=== PATIENT | female | born 1935 | race Caucasian/White ===

== ENCOUNTER → 2019-08-01 12:39 | Outpatient (BNVA) | payer MEDICARE, SELFPAY | PROVIDERS: Family Provider Nurse Practitioner; PCP Nurse Practitioner; Visit Provider Anesthesiology | DX: M54.5 Low back pain (principal); M47.22 Other spondylosis with radiculopathy, cervical region; M17.0 Bilateral primary osteoarthritis of knee; G62.9 Polyneuropathy, unspecified; Z79.891 Long term (current) use of opiate analgesic | CPT/HCPCS: 99214 ==

== ENCOUNTER → 2019-08-14 12:21 | Outpatient (BNVA) | payer MEDICARE, SELFPAY | PROVIDERS: Family Provider Nurse Practitioner; PCP Nurse Practitioner; Visit Provider Nurse Practitioner | DX: E11.65 Type 2 diabetes mellitus with hyperglycemia (principal); Z79.4 Long term (current) use of insulin; I10 Essential (primary) hypertension; F41.9 Anxiety disorder, unspecified; E03.8 Other specified hypothyroidism; Z91.89 Other specified personal risk factors, not elsewhere classified | CPT/HCPCS: 80053; 83036; 84443 ==

== ENCOUNTER → 2020-01-13 12:59 | Outpatient (BNVA) | payer MEDICARE, SELFPAY | PROVIDERS: Family Provider Nurse Practitioner; PCP Nurse Practitioner; Visit Provider Anesthesiology | DX: M54.9 Dorsalgia, unspecified (principal); M17.0 Bilateral primary osteoarthritis of knee; G62.9 Polyneuropathy, unspecified; M47.22 Other spondylosis with radiculopathy, cervical region; Z79.891 Long term (current) use of opiate analgesic | CPT/HCPCS: 99213; 99214 ==

== ENCOUNTER → 2020-01-14 14:31 | Outpatient (BNVA) | payer MEDICARE, SELFPAY | PROVIDERS: Family Provider Nurse Practitioner; PCP Nurse Practitioner; Visit Provider Nurse Practitioner Family | DX: M54.5 Low back pain (principal); I10 Essential (primary) hypertension; E11.65 Type 2 diabetes mellitus with hyperglycemia; E03.8 Other specified hypothyroidism | CPT/HCPCS: 72100; 73502; 80053; 80061; 83036; 84443 ==

== ENCOUNTER 2020-01-26 13:13 | Outpatient (CLI) | payer MEDICARE, SELFPAY ==
--- NOTE | 2020-01-26 13:29 | MR_ITS ---
WS: [id number] MRI LUMBAR SPINE NONCONTRAST HISTORY: LOW BACK PAIN COMPARISON: CT lumbar spine 06/13/2019. TECHNIQUE: Sagittal and axial multisequence imaging is submitted. Increase in thoracic kyphosis. Disc bulging and mild degenerative disc and osteophyte disease through out the cervical spine. There are 7 cervical and 12 thoracic vertebral bodies. L5 vertebral body is mildly hyperplastic and m ay be sacralized. This numbering pattern will be very important if surgery is contemplated in this pa tient. L2 anterolisthesis by 6.4 mm. L3 anterolisthesis by 3.9 mm. L4 anterolisthesis by 8.2 mm. Normal alignment at the L5-S1 disc level. Severe disc desiccation at all levels. Conus terminates normally at L1. L1-L2: Marked annular disc bulging and facet arthritis. More focal disc protrusion in the LEFT subart icular recess and LEFT foramen. Complete effacement of fat in the LEFT subarticular recess and forame n. Near complete effacement of fat on the RIGHT. L2-L3: Diffuse annular disc bulging and osteophytic ridging. Near complete effacement of central CSF. Marked ligamentum flavum disease and facet arthritis. Moderate to severe bilateral foraminal stenosi s. L3-L4: Diffuse annular disc bulging with marked facet and ligamentum flavum arthritis. Focal extruded disc on the LEFT extends superiorly adjacent to the LEFT lateral thecal sac. Severe central and bila teral subarticular recess and foraminal stenosis. L4-L5: Diffuse annular disc bulging and facet disease. Broad-based disc protrusion centrally and to t he LEFT. Mild bilateral foraminal stenosis and central stenosis. L5-S1: No stenosis. Paravertebral soft tissues are negative. Cortical cyst associated with the RIGHT kidney. Additional s maller cysts from the superior pole LEFT kidney. MR/MR lumbar spine wo con* [id number] IMPRESSION: 1. Severe multilevel spondylitic changes throughout the lumbar spine. 2. There are 5 lumbar type vertebral bodies but the fifth lumbar vertebral bod ies partially sacralized and small caliber. If surgery is contemplated in this patient correlation with imaging will be very important. 3. Severe central, bilateral subarticular recess and foraminal stenosis at L3- 4. There is an extruded disc extending superiorly on the LEFT at L3-4. 4. Moderate central and moderate to severe bilateral foraminal and subarticula r recess stenosis at L2-3. 5. Focal LEFT subarticular recess and foraminal disc protrusion at L1-2 with s ignificant LEFT foraminal and subarticular stenosis. 6. Bilateral foraminal and central stenosis at L4-5. 7. L2, L3 and L4 anterolisthesis.
== END 2020-01-26 13:14 | disposition home or self-care (01) ==
LOC: RADWPI 13:16
PROVIDERS: Family Provider Nurse Practitioner; PCP Nurse Practitioner; Visit Provider Nurse Practitioner Family
DX: M48.061 Spinal stenosis, lumbar region without neurogenic claudication (principal); M51.26 Other intervertebral disc displacement, lumbar region
CPT/HCPCS: 72148

== ENCOUNTER → 2020-04-08 15:36 | Outpatient (BNVA) | payer MEDICARE, SELFPAY | PROVIDERS: Family Provider Nurse Practitioner; PCP Nurse Practitioner; Visit Provider Nurse Practitioner | DX: Z23 Encounter for immunization (principal); F41.9 Anxiety disorder, unspecified; K46.9 Unspecified abdominal hernia without obstruction or gangrene; R06.02 Shortness of breath | CPT/HCPCS: 71046; 74018 ==

== ENCOUNTER → 2020-04-20 12:59 | Outpatient (BNVA) | payer MEDICARE, SELFPAY | PROVIDERS: Family Provider Nurse Practitioner; PCP Nurse Practitioner; Visit Provider Anesthesiology | DX: M48.061 Spinal stenosis, lumbar region without neurogenic claudication (principal); M51.26 Other intervertebral disc displacement, lumbar region; M47.22 Other spondylosis with radiculopathy, cervical region; G62.9 Polyneuropathy, unspecified; M54.9 Dorsalgia, unspecified; Z79.891 Long term (current) use of opiate analgesic | CPT/HCPCS: 99214 ==

== ENCOUNTER → 2020-07-13 10:48 | Outpatient (BNVA) | payer MEDICARE, SELFPAY | PROVIDERS: Family Provider Nurse Practitioner; PCP Nurse Practitioner; Visit Provider Nurse Practitioner Family | DX: R30.0 Dysuria (principal); E11.65 Type 2 diabetes mellitus with hyperglycemia; I10 Essential (primary) hypertension; N30.00 Acute cystitis without hematuria | CPT/HCPCS: 80053; 80061; 81000; 83036; 84443; 85025 ==

== ENCOUNTER → 2020-07-20 12:46 | Outpatient (BNVA) | payer MEDICARE, SELFPAY | PROVIDERS: Family Provider Nurse Practitioner; PCP Nurse Practitioner; Visit Provider Anesthesiology | DX: M47.22 Other spondylosis with radiculopathy, cervical region (principal); M51.26 Other intervertebral disc displacement, lumbar region; M54.9 Dorsalgia, unspecified; G62.9 Polyneuropathy, unspecified; Z79.891 Long term (current) use of opiate analgesic | CPT/HCPCS: 99214 ==

== ENCOUNTER → 2020-07-22 14:18 | Outpatient (BNVA) | payer MEDICARE, SELFPAY | PROVIDERS: Family Provider Nurse Practitioner; PCP Nurse Practitioner; Visit Provider Nurse Practitioner | DX: I10 Essential (primary) hypertension (principal); E11.65 Type 2 diabetes mellitus with hyperglycemia; F41.9 Anxiety disorder, unspecified; E03.8 Other specified hypothyroidism; K21.9 Gastro-esophageal reflux disease without esophagitis; N95.2 Postmenopausal atrophic vaginitis | CPT/HCPCS: 81000 ==

== ENCOUNTER → 2020-08-31 09:46 | Outpatient (BNVA) | payer MEDICARE, SELFPAY | PROVIDERS: Family Provider Nurse Practitioner; PCP Nurse Practitioner; Visit Provider Nurse Practitioner | DX: R30.0 Dysuria (principal) | CPT/HCPCS: 81003; 87077; 87086; 87184 ==

== ENCOUNTER → 2020-10-06 12:10 | Outpatient (BNVA) | payer MEDICARE, SELFPAY | PROVIDERS: Family Provider Nurse Practitioner; PCP Nurse Practitioner; Visit Provider Nurse Practitioner Family | DX: M79.671 Pain in right foot (principal); M79.89 Other specified soft tissue disorders; E11.65 Type 2 diabetes mellitus with hyperglycemia; I10 Essential (primary) hypertension | CPT/HCPCS: 73630; 80053; 84550; 85025; 85651 ==

== ENCOUNTER → 2020-10-07 13:00 | Outpatient (BNVA) | payer MEDICARE, SELFPAY | PROVIDERS: Family Provider Nurse Practitioner; PCP Nurse Practitioner; Visit Provider Anesthesiology | DX: G89.29 Other chronic pain (principal); M48.061 Spinal stenosis, lumbar region without neurogenic claudication; M51.26 Other intervertebral disc displacement, lumbar region; M54.9 Dorsalgia, unspecified; M47.22 Other spondylosis with radiculopathy, cervical region; M17.0 Bilateral primary osteoarthritis of knee; G62.9 Polyneuropathy, unspecified; Z79.891 Long term (current) use of opiate analgesic | CPT/HCPCS: 99214 ==

== ENCOUNTER → 2021-01-14 12:38 | Outpatient (BNVA) | payer MEDICARE, SELFPAY | PROVIDERS: Family Provider Nurse Practitioner; PCP Nurse Practitioner; Visit Provider Nurse Practitioner | DX: M48.061 Spinal stenosis, lumbar region without neurogenic claudication (principal); M47.22 Other spondylosis with radiculopathy, cervical region; G62.9 Polyneuropathy, unspecified; Z79.891 Long term (current) use of opiate analgesic | CPT/HCPCS: 99213 ==

== ENCOUNTER → 2021-01-26 11:26 | Outpatient (BNVA) | payer MEDICARE, SELFPAY | PROVIDERS: Family Provider Nurse Practitioner; PCP Nurse Practitioner; Visit Provider Nurse Practitioner | DX: I10 Essential (primary) hypertension (principal); E11.65 Type 2 diabetes mellitus with hyperglycemia; F41.9 Anxiety disorder, unspecified; E03.8 Other specified hypothyroidism; M10.9 Gout, unspecified; E79.0 Hyperuricemia without signs of inflammatory arthritis and tophaceous disease; K21.9 Gastro-esophageal reflux disease without esophagitis | CPT/HCPCS: 80053; 83036; 84443; 84550 ==

== ENCOUNTER → 2021-04-21 12:34 | Outpatient (BNVA) | payer MEDICARE, SELFPAY | PROVIDERS: Family Provider Nurse Practitioner; PCP Nurse Practitioner; Visit Provider Anesthesiology | DX: G89.29 Other chronic pain (principal); M48.061 Spinal stenosis, lumbar region without neurogenic claudication; M51.26 Other intervertebral disc displacement, lumbar region; M47.22 Other spondylosis with radiculopathy, cervical region; G62.9 Polyneuropathy, unspecified; I10 Essential (primary) hypertension; Z79.891 Long term (current) use of opiate analgesic; Z87.891 Personal history of nicotine dependence | CPT/HCPCS: 99214 ==

== ENCOUNTER → 2021-06-07 14:21 | Outpatient (BNVA) | payer MEDICARE, SELFPAY | PROVIDERS: Family Provider Nurse Practitioner; PCP Nurse Practitioner; Referring Provider Nurse Practitioner Family; Visit Provider Orthopaedic Surgery | DX: M25.561 Pain in right knee (principal); G89.29 Other chronic pain; M17.11 Unilateral primary osteoarthritis, right knee | CPT/HCPCS: 73560; 73565 ==

== ENCOUNTER → 2021-07-19 10:06 | Outpatient (BNVA) | payer MEDICARE, SELFPAY | PROVIDERS: Family Provider Nurse Practitioner; PCP Nurse Practitioner; Visit Provider Nurse Practitioner | DX: R50.9 Fever, unspecified (principal) | CPT/HCPCS: 80053; 81000; 85025; 87635 ==

== ENCOUNTER 2021-07-23 09:22 | Outpatient (CLI) | payer MEDICARE, SELFPAY ==
[2021-07-23 09:40] VITALS: BP 141/61; PULSE 60; RESP 16; TEMP 36.5; O2SAT 98; BMI 34.9
[2021-07-23 10:37] VITALS: BP 130/60; PULSE 67; RESP 16; TEMP 36.6; O2SAT 96
[2021-07-23 11:38] VITALS: BP 145/70; PULSE 61; RESP 16; TEMP 36.7; O2SAT 97
== END 2021-07-23 09:23 | disposition home or self-care (01) ==
LOC: OPS 09:28
PROVIDERS: PCP Nurse Practitioner; Visit Provider Nurse Practitioner
DX: U07.1 COVID-19 (principal)
CPT/HCPCS: 96365

== ENCOUNTER → 2021-07-27 14:34 | Outpatient (BNVA) | payer MEDICARE, SELFPAY | PROVIDERS: PCP Nurse Practitioner; Visit Provider Anesthesiology | DX: G89.29 Other chronic pain (principal); M54.50 Low back pain, unspecified; M54.2 Cervicalgia; G62.9 Polyneuropathy, unspecified; Z79.891 Long term (current) use of opiate analgesic; Z87.891 Personal history of nicotine dependence | CPT/HCPCS: 99214 ==

== ENCOUNTER → 2021-08-12 11:30 | Outpatient (BNVA) | payer MEDICARE, SELFPAY | PROVIDERS: PCP Nurse Practitioner; Visit Provider Nurse Practitioner | DX: F41.9 Anxiety disorder, unspecified (principal); M48.061 Spinal stenosis, lumbar region without neurogenic claudication; I10 Essential (primary) hypertension; E79.0 Hyperuricemia without signs of inflammatory arthritis and tophaceous disease; E11.65 Type 2 diabetes mellitus with hyperglycemia; K21.9 Gastro-esophageal reflux disease without esophagitis; E03.8 Other specified hypothyroidism | CPT/HCPCS: 80053; 80061; 81000; 82043; 83036; 84443 ==

== ENCOUNTER 2021-12-19 14:48 | Observation (INO) | payer MEDICARE, SELFPAY ==
[2021-12-19] VITALS (9 sets, daily range): BP systolic 104–167; BP diastolic 39–74; PULSE 58–70; RESP 12–20; TEMP 36.2–36.4; O2SAT 92–96; BMI 33.0
--- NOTE | 2021-12-19 15:00 | ECG_ITS ---
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 Measurements Intervals [place] Rate: 62 P: -18 IA: 149 QRS: -53 QRSD: 107 T: 40 QT: 378 QTc: 385 Interpretive Statements SINUS RHYTHM LEFT ANTERIOR FASCICULAR BLOCK [QRS AXIS <= -45, QR IN I, RS IN II] MINIMAL VOLTAGE CRITERIA FOR LVH, CONSIDER NORMAL VARIANT POSSIBLE ANTERIOR MYOCARDIAL INFARCTION , OF INDETERMINATE AGE Compared to ECG 06/13/2019 23:20:29 Left anterior fascicular block now present Myocardial infarct finding now present Left-axis deviation no longer present Electronically Signed On 12-19-2021 21:20:44 CDT by Stephania Antonio M.D. [id number] f
[2021-12-19 16:23] LABS: Basophils % 0.2 %; Eosinophils # 0.4 10^3/uL (0.0-0.8); Eosinophils % 2.4 %; Hematocrit 44.1 % (37.0-47.0); Hemoglobin 14.3 g/dL (11.5-15.3); Lymphocytes # 4.2 10^3/uL (0.8-4.8); Lymphocytes % 26.6 %; Mean Corpuscular HGB Conc 32.4 g/dL (30.0-36.0); Mean Corpuscular Hemoglobin 29.8 pg (28.0-34.0); Mean Corpuscular Volume 91.9 fl (81-99); Mean Platelet Volume 10.4 fL (7.4-10.4); Monocytes # 1.7 10^3/uL (0.2-0.9); Monocytes % 11.1 %; Neutrophils # 8.99 10^3/uL (1.8-7.7); Neutrophils % 57.2 %; Nucleated Red Blood Cells % 0 %; Platelet Count 348 10^3/cmm (130-400); Red Cell Distribution Width 14.7 % (12.1-15.1); White Blood Count 15.7 10^3/uL (4.0-10.0)
[2021-12-19 16:44] LABS: Troponin(5th) Baseline 22 ng/L (0-10)
[2021-12-19 16:51] LABS: Alanine Aminotransferase 10 U/L (0-33); Albumin Level 4.3 g/dL (3.5-5.2); Alkaline Phosphatase 88 IU/L (35-105); Anion Gap 17.3 (5-19); Aspartate Amino Transferase 10 U/L (0-32); Blood Urea Nitrogen 62 mg/dL (8-23); Calcium 10.2 mg/dL (8.5-10.5); Carbon Dioxide 25 mmol/L (22-29); Chloride 93 mmol/L (98-107); Globulin 3.1 g/dL (1.3-4.6); Glucose 193 mg/dL (65-115); Osmolality Calculated 295 mOsm/kg (285-295); Potassium 4.3 mmol/L (3.5-5.1); Sodium 131 mmol/L (136-145); Total Bilirubin 0.4 mg/dL (0.15-1.2); Total Protein 7.4 g/dL (6.6-8.7)
--- NOTE | 2021-12-19 17:00 | ECG_ITS ---
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 Measurements Intervals [place] Rate: 58 P: -12 [place]: 153 QRS: -56 QRSD: 99 T: 43 QT: 395 QTc: 391 Interpretive Statements SINUS BRADYCARDIA LEFT ANTERIOR FASCICULAR BLOCK [QRS AXIS <= -45, QR IN I, RS IN II] MINIMAL VOLTAGE CRITERIA FOR LVH, CONSIDER NORMAL VARIANT [MEETS CRITERIA IN ONE OF: R(aVL), S(V1), R(V5), R(V5/V6)+S(V1)] POSSIBLE ANTERIOR MYOCARDIAL INFARCTION , OF INDETERMINATE AGE [30 ms Q WAVE IN V3/V4, OR R < 0.2 mV IN V4] Compared to ECG 12/19/2021 15:04:30 Sinus rhythm no longer present Myocardial infarct finding still present Electronically Signed On 12-19-2021 21:28:55 CDT by Stephania Antoino M.D. [id number]
--- NOTE | 2021-12-19 17:29 | P.HP_ITS ---
Providers/Chief Complaint Primary Care Provider: ANGE Cano Chief Complaint: chest pain/pressure, SOB History of Present Illness Geeta Lagos is a 86 year old female who presented to the hospital with chief complaint of chest pain. Patient is stating that she had 2 episode of chest pain last 48 hours. She was describing her chest pain as chest tightness which would only last for a few seconds and go away on its own. She has not noticed any fever, diarrhea, orthopnea, PND, nausea, vomiting or diaphoresis. On 12/19 she had another episode which she describing her chest tightness which made her very anxious and she decided to come to the hospital for further evaluation. She is also endorsing some fatigue and lethargy however she is very active for her age, lives alone and takes care of her daily activities. She denies previous history of MO, CHF or coronary disease. Review of Systems Const: Denies: fever(s) Eyes: Denies: change in vision ENMT: Denies: throat pain Card: Reports: chest pain and dyspnea on exertion Resp: Reports: dyspnea GI: Reports: nausea : Denies: flank pain Musc: Denies: neck pain Skin/Breast: Denies: rash Neuro: Reports: headache(s) Psych: Denies: anxiety Endo: Denies: polyuria Conrado/Lymph: Denies: easy bruising All/Imm: Denies: urticaria Medications/Allergies Home Medications Medication Instructions Recorded Confirmed Last Taken Type aspirin 81 mg tablet,delayed 81 mg PO QDAY 08/01/19 12/19/21 12/19/21 History release bisacodyl 5 mg tablet (Laxative 5 mg PO QPM PRN tab 08/01/19 12/19/21 07/23/21 History (bisacodyl)) cholecalciferol (vitamin D3) 50 2,000 unit PO QDAY 08/01/19 12/19/21 12/19/21 History mcg (2,000 unit) chewable tablet coenzyme Q10 10 mg capsule (Co 30 mg PO QDAY 08/01/19 12/19/21 12/19/21 History Q-10) gabapentin 600 mg tablet 600 mg PO TID 30 Days #90 tab 07/27/21 12/19/2112/01 Rx hydrocodone 10 mg-acetaminophen 1 tab PO .6 times a day PRN 30 07/27/21 12/19/21 Unknown Rx 325 mg tablet Days #180 tab allopurinol 300 mg tablet 300 mg PO DAILY #30 tab 08/12/21 12/19/21 12/19/21 Rx amlodipine 5 mg tablet 5 mg PO DAILY #30 tab 08/12/21 12/19/21 12/19/21 Rx atenolol 25 mg tablet 25 mg PO QDAY #30 tab 08/12/21 12/19/21 12/19/21 Rx atorvastatin 10 mg tablet (Lipitor) 10 mg PO QDAY #30 tab 08/12/21 12/19/21 12/19/21 Rx bupropion HCl 150 mg tablet,12 hr 150 mg PO QAM #30 tab 08/12/21 12/19/21 12/19/21 Rx sustained-release (Wellbutrin SR) famotidine 20 mg tablet (Pepcid) 20 mg PO DAILY #30 tab 08/12/21 12/19/21 12/19/21 Rx furosemide 20 mg tablet (Lasix) 20 mg PO BID PRN #60 tab 08/12/21 12/19/21 Unknown Rx levothyroxine 100 mcg tablet 100 mcg PO QDAY #30 tab 08/12/21 12/19/21 12/19/21 Rx linagliptin 5 mg tablet (Tradjenta) 5 mg PO QDAY #30 tab 08/12/21 12/19/21 12/19/21 Rx lisinopril 40 mg tablet 40 mg PO DAILY #30 tab 08/12/21 12/19/21 12/19/21 Rx dapagliflozin 5 mg tablet (Farxiga) 5 mg PO QAM #30 tab 10/05/21 12/19/21 12/19/21 Rx doxycycline hyclate 100 mg capsule 100 mg PO BID #14 cap 12/13/21 12/19/21 12/19/21 Rx sertraline 100 mg tablet 50 mg PO BID 12/19/21 12/19/21 12/19/21 History Allergies Allergy/AdvReac Type Severity Reaction Status Date / Time Penicillins Allergy Intermediate rash and Verified 12/19/21 18:21 itching PFSH Acute PFSH: Medical History Acid reflux Adult onset hypothyroidism Anxiety and depression Bilateral primary osteoarthritis of knee Bulging lumbar disc Cervical radiculopathy due to degenerative joint disease of spine Controlled diabetes mellitus with hyperglycemia, without long-term current use of insulin DDD (degenerative disc disease), lumbar Degenerative disc disease Diabetes mellitus with hyperglycemia, without long-term current use of insulin Elevated blood uric acid level Encounter for long-term use of opiate analgesic Essential (primary) hypertension Fibromyalgia, primary Lumbar stenosis Polyneuropathy, unspecified Vitamin D insufficiency Surgical History H/O cataract removal with insertion of prosthetic lens H/O dilation and curettage H/O: hysterectomy History of knee replacement Left knee /2019 Status post total hip replacement, bilateral Family History Mother Stroke Hypertension Social History Smoking and tobacco status: former smoker Second hand smoke exposure: No Alcohol intake: never Desire information about alcohol rehabilitation?: No Counseling given: No Desire information about substance/drug rehabilitation?: No Counseling given: No Adopted: No Caregiver/support person: No Lives independently: Yes Household members: none Housing: House Marital status: / service: No Current occupational status: unemployed and retired Pets and animals: Yes Pets & animals: cat(s) and dog(s) History of recent travel: No Current gender identity: Female Vitals/I&O/Wt Last Vital Signs Temp 97.1 F L 12/19/21 15:06 Pulse 62 12/19/21 15:06 Resp 16 12/19/21 15:06 BP 138/66 12/19/21 15:06 Pulse Ox 94 12/19/21 15:06 Weight last 48 hrs Weight 79.379 kg Physical Exam Narrative: Very pleasant cooperative female Euvolemic No active chest pain Saturating well on room air Normal blood pressure Heart rate fluctuating between 56-65 Abdomen soft No signs of edema No audible stridor or wheezing Son at the bedside S1, S2 No murmur appreciated Data : 12/20/21 05:11 12/20/21 05:11 A&P Assessment and plan (1) Chest pain: Status: Acute Plan Unstable angina Risk factors for coronary artery disease are moderate Will do cardiac stress test tomorrow morning Currently chest pain-free Hemodynamically stable Noticed bradycardia Hold atenolol Essential hypertension: Continue lisinopril and amlodipine Bronchitis, I will use azithromycin for now Check D-dimer She does take multiple antidepressants Continue famotidine Hold estrogen Cardiac consistent carb diet, n.p.o. after midnight Stress test tomorrow morning Check echo Full code Attestations Medical Necessity Statement*: Anticipating less than 2 midnights for work-up of unstable angina Time Spent in Patient Care: 40 Coding Level of Care Code Acute Nurses Superintendent for Suri Ragsdale Diagnoses Chest pain R07.9
--- NOTE | 2021-12-19 17:30 | ED_ITS ---
HPI - General Adult General: Chief complaint: Chest Pain Stated complaint: chest pain/pressure, SOB Time Seen by Provider: 12/19/21 17:20 History of Present Illness: HPI: This is a [86]yo patient hx of DM, HTN, prior smoking presenting to the ED complaining of chest pressure lasting for 5 minutes. Patient has had 2 episodes 1 yesterday night today at 12:00. Episodes were associate with shortness of breath and diaphoresis and nausea. Pain is not tearing in nature and does not ra diate to the back. Pain not associated with vomiting or PO intake. Denies any recent sympathomimetic drug use. Patient denies any cough. Denies palpitations, dysphagia, radiation of pain to bilateral arms, jaw. Denies F/V/D. Patient denies any recent immobility, surgery, unilateral leg swelling, or prior PE. Patient denies any orthopnea. Onset: yesterday Duration: two episodes lasting for 5 minutes at a time Location: home Severity: moderate Associated symptoms: Reports chest pain, dyspnea and nausea; Deny rash, palpitations or vomiting Review of Systems Const: Reports: other (+diaphoresis); Denies: fever(s) or chills Eyes: Denies: change in vision ENMT: Denies: mouth pain Card: Reports: chest pain; Denies: palpitations Resp: Reports: dyspnea; Denies: non-productive cough GI: Reports: nausea; Denies: abdominal pain, vomiting or diarrhea : Denies: dysuria Musc: Denies: extremity pain Skin/Breast: Denies: rash or new lesions Neuro: Denies: weakness in extremities Psych: Reports: other (Normal mood) Conrado/Lymph: Denies: easy bruising PFSH ED PFSH: Medical History Acid reflux Adult onset hypothyroidism Anxiety and depression Bilateral primary osteoarthritis of knee Bulging lumbar disc Cervical radiculopathy due to degenerative joint disease of spine Controlled diabetes mellitus with hyperglycemia, without long-term current use of insulin DDD (degenerative disc disease), lumbar Degenerative disc disease Diabetes mellitus with hyperglycemia, without long-term current use of insulin Elevated blood uric acid level Encounter for long-term use of opiate analgesic Essential (primary) hypertension Fibromyalgia, primary Lumbar stenosis Polyneuropathy, unspecified Vitamin D insufficiency Surgical History H/O cataract removal with insertion of prosthetic lens H/O dilation and curettage H/O: hysterectomy History of knee replacement Left knee /2019 Status post total hip replacement, bilateral Family History Mother Stroke Hypertension Social History Smoking and tobacco status: former smoker Second hand smoke exposure: No Alcohol intake: never Desire information about alcohol rehabilitation?: No Counseling given: No Desire information about substance/drug rehabilitation?: No Counseling given: No Adopted: No Caregiver/support person: No Lives independently: Yes Household members: none Housing: House Marital status: / service: No Current occupational status: unemployed and retired Pets and animals: Yes Pets & animals: cat(s) and dog(s) History of recent travel: No Current gender identity: Female Physical Exam Const: COMMON NORMALS: alert HENMT: COMMON NORMALS: atraumatic HEAD & SCALP: atraumatic MOUTH: moist mucous membranes not abnormal Eye: COMMON NORMALS: EOMs intact bilaterally and conjunctivae normal CONJUNCTIVA: Yes conjunctivae normal Neck/C-Spine: COMMON NORMALS: full ROM and supple Resp: COMMON NORMALS: normal respiratory effort and clear to auscultation bilaterally AUSCULTATION: clear to auscultation bilaterally Cardio: COMMON NORMALS: regular rate RATE: regular rate OTHER: 2+ radial pulses b/l GI: COMMON NORMALS: Soft to palpation and non-tender PALPATION: Yes Soft to palpation Extremity: COMMON NORMALS: full ROM Neuro: SENSORIUM/ORIENTATION: Yes alert MOTOR EXAM: No Abnormal motor strength present and Other motor observations present (no focal motor deficits) Psych: COMMON NORMALS: speech normal SPEECH: Yes normal speech MOOD & AFFECT: Yes euthymic mood Course Vital Signs: Vital signs: Vital Signs Temperature 98.2 F 12/21/21 13:45 Pulse Rate 71 12/21/21 13:45 Respiratory Rate 16 12/21/21 13:45 Blood Pressure 110/60 12/21/21 13:45 Pulse Oximetry 96 12/21/21 13:45 MDM - General Adult Medical Decision Making [86]yo patient w/ hx of DM, HTN, prior smoking presenting to the ED with evaluation of new onset chest pressure x 2 days. HDS, pulse 2+ radially aurelia aterally, no signs of fluid overload, AAOx3, neuro exam intact. Workup: ECG x2, CXR, CBC, BMP, Troponin x 2 Interventions: ASA Findings: ECG: No overt evidence of STEMI, hyperacute T waves, localizable STD or T wave inversions. No evidence of Brugada?s sign, delta wave, epsilon wave, significantly prolonged QTc, or malignant arrhythmia. No Q waves. Other Labs unremarkable for emergent problems. CXR: Without PTX, PNA, or widened mediastinum Last Stress Test: never Last Heart Catheterization: never HEART Score: 5 Age adjusted Dimer wnl. [5:32] On reassessment, the patient is HDS, no complaints of persistent chest pain in the ED after evaluation. ECG is non-ischemic. Troponin of 21 initially. Given fact the patient has anginal-like chest pain never had a prior work-up, patient will be emergency room for further evaluation of chest pain. Disposition: admission Lab Data : 12/21/21 05:12 12/21/21 05:12 Radiology Impressions Chest X-Ray 12/19/21 19:06 IMPRESSION: No acute radiographic findings. Chest CT 12/20/21 13:28 IMPRESSION: 1. Mild chronic emphysematous changes. 2. A few tree-in-bud opacities in the RIGHT upper lobe and RIGHT lower lobe likely inflammatory. 3. No focal pneumonia or pleural fluid. 4. No mediastinal or hilar lymphadenopathy. 5. Vascular calcification including coronary. 6. Small esophageal hiatal hernia. 7. A few tiny pulmonary nodules in RIGHT upper and RIGHT lower lobe measuring 2 to 3 mm. 8. No other significant findings. Laboratory Results WBC 15.7 10^3/uL (4.0-10.0) H 12/19/21 15:50 RBC 4.80 10^6/uL (4.1-5.3) 12/19/21 15:50 Hgb 14.3 g/dL (11.5-15.3) 12/19/21 15:50 Hct 44.1 % (37.0-47.0) 12/19/21 15:50 MCV 91.9 fl (81-99) 12/19/21 15:50 MCH 29.8 pg (28.0-34.0) 12/19/21 15:50 MCHC 32.4 g/dL (30.0-36.0) 12/19/21 15:50 RDW 14.7 % (12.1-15.1) 12/19/21 15:50 Plt Count 348 10^3/cmm (130-400) 12/19/21 15:50 MPV 10.4 fL (7.4-10.4) 12/19/21 15:50 Neut % (Auto) 57.2 % 12/19/21 15:50 Lymph % (Auto) 26.6 % 12/19/21 15:50 [place] % (Auto) 11.1 % 12/19/21 15:50 Eos % (Auto) 2.4 % 12/19/21 15:50 Baso % (Auto) 0.2 % 12/19/21 15:50 Neut # (Auto) 8.99 10^3/uL (1.8-7.7) H 12/19/21 15:50 Lymph # (Auto) 4.2 10^3/uL (0.8-4.8) 12/19/21 15:50 [place] # (Auto) 1.7 10^3/uL (0.2-0.9) H 12/19/21 15:50 Eos # (Auto) 0.4 10^3/uL (0.0-0.8) 12/19/21 15:50 Baso # (Auto) 0.0 10^3/uL (0.0-0.1) 12/19/21 15:50 Nucleated RBC % (auto) 0 % 12/19/21 15:50 Nucleated RBCs # 0.0 /100WBC 12/19/21 15:50 Sodium 131 mmol/L (136-145) L 12/19/21 15:50 Potassium 4.3 mmol/L (3.5-5.1) 12/19/21 15:50 Chloride 93 mmol/L (98-107) L 12/19/21 15:50 Carbon Dioxide 25 mmol/L (22-29) 12/19/21 15:50 Anion Gap 17.3 (5-19) 12/19/21 15:50 BUN 62 mg/dL (8-23) H 12/19/21 15:50 Creatinine 1.8 mg/dL (0.5-0.9) H 12/19/21 15:50 GFR Calculation Not Reportable 12/19/21 15:50 Glucose 193 mg/dL (65-115) H 12/19/21 15:50 Estimat Average Glucose 220 12/19/21 15:50 Hemoglobin A1c 9.3 % (4.0-6.0) H 12/19/21 15:50 Calculated Osmolality 295 mOsm/kg (285-295) 12/19/21 15:50 Calcium 10.2 mg/dL (8.5-10.5) 12/19/21 15:50 Total Bilirubin 0.4 mg/dL (0.15-1.2) 12/19/21 15:50 AST 10 U/L (0-32) 12/19/21 15:50 ALT 10 U/L (0-33) 12/19/21 15:50 Alkaline Phosphatase 88 IU/L (35-105) 12/19/21 15:50 Troponin T Baseline 22 ng/L (0-10) H 12/19/21 15:50 Total Protein 7.4 g/dL (6.6-8.7) 12/19/21 15:50 Albumin 4.3 g/dL (3.5-5.2) 12/19/21 15:50 Globulin 3.1 g/dL (1.3-4.6) 12/19/21 15:50 Discharge Plan Discharge Patient Disposition: Admitted As Inpatient Admit Provider: Moira Lyon Clinical Impression: Chest pain Condition: Stable Discharge Diet: Regular Discharge Activity: Increase activity as tolerated Coding Level of Care Code ED Departure Clerk for Chg Fwd Exam Comprehensive
[2021-12-19] MEDS: aspirin 325 mg Tablet PO (17:33)
[2021-12-19 18:35] LABS: Troponin 5 2HR 20.67 ng/L (0-10)
[2021-12-19 18:45] LABS: Troponin 5 2HR Delta -1.33 ABS# (0-10)
[2021-12-19 19:01] LABS: D Dimer 0.73 ug/mIFEU (0-0.59)
--- NOTE | 2021-12-19 19:06 | XRR_ITS ---
PROCEDURE INFORMATION: Exam: XR Chest Exam date and time: 12/19/2021 7:40 PM Age: 86 years old Clinical indication: Chest wall pain; Additional info: Chest pain TECHNIQUE: Imaging protocol: Radiologic exam of the chest. Views: 1 view. COMPARISON: CR XR chest 2V* [id number] 04/08/2020 3:39 PM FINDINGS: Lungs: Unremarkable. No consolidation. Pleural spaces: Unremarkable. No pleural effusion. No pneumothorax. Heart/Mediastinum: Unremarkable. No cardiomegaly. Vasculature: There is again unfolding of the descending aorta. Bones/joints: Unremarkable. XR/XR chest 1V portable [id number] IMPRESSION: No acute radiographic findings.
[2021-12-19] MEDS: oxyCODONE-APAP 5-325 mg Tablet 1 TAB PO (20:44)
--- NOTE | 2021-12-19 21:00 | ECG_ITS ---
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 Measurements Intervals [place] Rate: 60 P: 69 ME: 176 QRS: -50 QRSD: 102 T: 38 QT: 387 QTc: 389 Interpretive Statements SINUS RHYTHM LEFT ANTERIOR FASCICULAR BLOCK [QRS AXIS <= -45, QR IN I, RS IN II] POSSIBLE ANTERIOR MYOCARDIAL INFARCTION , OF INDETERMINATE AGE [30 ms Q WAVE IN V3/V4, OR R < 0.2 mV IN V4] Compared to ECG 12/19/2021 16:56:06 Sinus bradycardia no longer present Myocardial infarct finding still present Electronically Signed On 12-20-2021 22:32:23 CDT by Armaan Ramirez M.D. [id number]
[2021-12-19 22:23] LABS: Troponin 5 6HR 19.41 ng/L (0-10)
[2021-12-19 22:26] LABS: Troponin 5 6HR Delta -2.59 ng/L (0-12)
[2021-12-19] MEDS: gabapentin 300 mg Capsule 600 MG PO (23:25)
[2021-12-19] MEDS: insulin lispro 100 unit/1 mL SUBCUT (23:26)
[2021-12-20] VITALS (11 sets, daily range): BP systolic 110–136; BP diastolic 59–80; PULSE 55–129; RESP 14–18; TEMP 36.2–36.6; O2SAT 91–98
[2021-12-20 00:12] LABS: Estmated Average Glucose 220; Hemoglobin A1C 9.3 % (4.0-6.0)
--- NOTE | 2021-12-20 00:15 | PC.NURSE ---
Confirmed orders with Dr Velazquez for insulin sliding scale, Telemetry orders, and continue patients pain medication hydrocodone/acetaminophen.
[2021-12-20 05:28] LABS: Basophils # 0.1 10^3/uL (0.0-0.1); Basophils % 0.3 %; Eosinophils # 0.6 10^3/uL (0.0-0.8); Eosinophils % 3.7 %; Hematocrit 41.1 % (37.0-47.0); Hemoglobin 13.6 g/dL (11.5-15.3); Lymphocytes # 4.1 10^3/uL (0.8-4.8); Lymphocytes % 25.5 %; Mean Corpuscular HGB Conc 33.1 g/dL (30.0-36.0); Mean Corpuscular Hemoglobin 29.6 pg (28.0-34.0); Mean Corpuscular Volume 89.5 fl (81-99); Mean Platelet Volume 10.6 fL (7.4-10.4); Monocytes # 1.7 10^3/uL (0.2-0.9); Monocytes % 10.4 %; Neutrophils % 58.2 %; Nucleated Red Blood Cells % 0 %; Platelet Count 333 10^3/cmm (130-400); Red Blood Count 4.59 10^6/uL (4.1-5.3); Red Cell Distribution Width 14.6 % (12.1-15.1)
[2021-12-20 05:43] LABS: Blood Urea Nitrogen 62 mg/dL (8-23); Calcium 9.8 mg/dL (8.5-10.5); Carbon Dioxide 24 mmol/L (22-29); Chloride 96 mmol/L (98-107); Glucose 138 mg/dL (65-115); Magnesium 2.3 mg/dL (1.7-2.3); Osmolality Calculated 290 mOsm/kg (285-295); Sodium 130 mmol/L (136-145)
[2021-12-20 05:45] LABS: Anion Gap 14.7 (5-19); Potassium 4.7 mmol/L (3.5-5.1)
--- NOTE | 2021-12-20 06:34 | P.DS_ITS ---
Discharge Providers Date of Admission: 12/19/21 17:32 Date of Discharge: December 20, 2021 Attending Provider at Admission: Moira Lyon MD Attending Provider at Discharge: Moira Lyon MD Primary Care Provider: ANGE Cano Diagnoses at Discharge Discharge Diagnosis (1) Chest pain: Status: Acute (2) Hyponatremia: Status: Acute Reason for Visit Reason for Visit: chest pain/pressure, SOB Hospital Course Hospital Course Very pleasant 86-year-old female who presented to the hospital with chief complaint of left-sided chest discomfort which she described as chest tightness occurred spontaneously at rest. she had 2 episodes at home. Stress test was requested next day after holding her atenolol, she was bradycardic without any symptoms. Remained hemodynamically stable. No electrolyte imbalance. Stress test and echo unremarkable She stayed an extra day for worsening leukocytosis and hyponatremia She was started on normal saline serum osmolality were checked, at home she was taking diuretics, I asked her to not to take her diuretic for at least a week, I will give her salt tablets recheck sodium level in next 3 days, CT chest showing tree-in-bud appearance no acute consolidation, 2 to 3 mm pulmonary nodule, I will ask her to see Dr. Brooks outpatient Outpatient follow-up with PCP Counseled patient to cut back on her atenolol or discontinue because of bradycardia Her symptoms are likely related to hiatal hernia/GERD I have continued her on azithromycin for bronchitis Physical Exam Narrative: Pleasant cooperative No active chest pain Abdomen soft Nonfocal neuro exam Doing well on room air Very pleasant and cooperative No audible stridor or wheezing Discharge Data Studies Completed and Pending Completed Studies During Hospitalization Category Date Time Status XR chest 1V portable [id number] Urgent Exams 12/19/21 19:06 Completed Pending at discharge Category Date Time Status Sestamibi Stress Test Request Routine Exams 12/19/21 22:05 Ordered NM kar perf SPECT r/s* [id number] Routine Nuc Med 12/20/21 22:05 Ordered CV. echo complete* [id number] Routine Ultrasound 12/20/21 22:05 Ordered Radiology Impressions Chest X-Ray 12/19/21 19:06 IMPRESSION: No acute radiographic findings. Laboratory Results WBC 16.0 10^3/uL (4.0-10.0) H 12/20/21 05:11 RBC 4.59 10^6/uL (4.1-5.3) 12/20/21 05:11 Hgb 13.6 g/dL (11.5-15.3) 12/20/21 05:11 Hct 41.1 % (37.0-47.0) 12/20/21 05:11 MCV 89.5 fl (81-99) 12/20/21 05:11 MCH 29.6 pg (28.0-34.0) 12/20/21 05:11 MCHC 33.1 g/dL (30.0-36.0) 12/20/21 05:11 RDW 14.6 % (12.1-15.1) 12/20/21 05:11 Plt Count 333 10^3/cmm (130-400) 12/20/21 05:11 MPV 10.6 fL (7.4-10.4) H 12/20/21 05:11 Neut % (Auto) 58.2 % 12/20/21 05:11 Lymph % (Auto) 25.5 % 12/20/21 05:11 [place] % (Auto) 10.4 % 12/20/21 05:11 Eos % (Auto) 3.7 % 12/20/21 05:11 Baso % (Auto) 0.3 % 12/20/21 05:11 Neut # (Auto) 9.30 10^3/uL (1.8-7.7) H 12/20/21 05:11 Lymph # (Auto) 4.1 10^3/uL (0.8-4.8) 12/20/21 05:11 [place] # (Auto) 1.7 10^3/uL (0.2-0.9) H 12/20/21 05:11 Eos # (Auto) 0.6 10^3/uL (0.0-0.8) 12/20/21 05:11 Baso # (Auto) 0.1 10^3/uL (0.0-0.1) 12/20/21 05:11 Nucleated RBC % (auto) 0 % 12/20/21 05:11 Nucleated RBCs # 0.0 /100WBC 12/20/21 05:11 D-Dimer 0.73 ug/mIFEU (0-0.59) H 12/19/21 18:36 Sodium 130 mmol/L (136-145) L 12/20/21 05:11 Potassium 4.7 mmol/L (3.5-5.1) 12/20/21 05:11 Chloride 96 mmol/L (98-107) L 12/20/21 05:11 Carbon Dioxide 24 mmol/L (22-29) 12/20/21 05:11 Anion Gap 14.7 (5-19) 12/20/21 05:11 BUN 62 mg/dL (8-23) H 12/20/21 05:11 Creatinine 1.7 mg/dL (0.5-0.9) H 12/20/21 05:11 GFR Calculation Not Reportable 12/20/21 05:11 Glucose 138 mg/dL (65-115) H 12/20/21 05:11 Estimat Average Glucose 220 12/19/21 15:50 Hemoglobin A1c 9.3 % (4.0-6.0) H 12/19/21 15:50 Calculated Osmolality 290 mOsm/kg (285-295) 12/20/21 05:11 Calcium 9.8 mg/dL (8.5-10.5) 12/20/21 05:11 Magnesium 2.3 mg/dL (1.7-2.3) 12/20/21 05:11 Total Bilirubin 0.4 mg/dL (0.15-1.2) 12/19/21 15:50 AST 10 U/L (0-32) 12/19/21 15:50 ALT 10 U/L (0-33) 12/19/21 15:50 Alkaline Phosphatase 88 IU/L (35-105) 12/19/21 15:50 Troponin T Baseline 22 ng/L (0-10) H 12/19/21 15:50 Troponin T 120 Minute 20.67 ng/L (0-10) H 12/19/21 17:50 Delta Troponin T -1.33 ABS# (0-10) L 12/19/21 17:50 Troponin T Hi Sens 6Hr 19.41 ng/L (0-10) H 12/19/21 21:57 Troponin T Hi Sens 6Hr Delta -2.59 ng/L (0-12) L 12/19/21 21:57 Total Protein 7.4 g/dL (6.6-8.7) 12/19/21 15:50 Albumin 4.3 g/dL (3.5-5.2) 12/19/21 15:50 Globulin 3.1 g/dL (1.3-4.6) 12/19/21 15:50 Vitals Last Vital Signs Temp 97.2 F L 12/20/21 04:00 Pulse 55 L 12/20/21 05:21 Resp 17 12/20/21 04:00 BP 110/64 12/20/21 04:00 Pulse Ox 91 12/20/21 04:00 Discharge Plan Discharge Patient Disposition: Home Condition: Stable Prescriptions: New albuterol sulfate 90 mcg/actuation HFA aerosol inhaler 2 inh inhalation Q8H PRN (Reason: shortness of breath or wheezing) Qty: 8.5 0RF levofloxacin 750 mg tablet 750 mg PO DAILY 5 Days Qty: 5 0RF sodium chloride 1 gram tablet 1,000 mg PO DAILY Qty: 5 0RF Continued aspirin 81 mg tablet,delayed release (DR/EC) 81 mg PO QDAY 0RF coenzyme Q10 [Co Q-10] 10 mg capsule 30 mg PO QDAY 0RF Laxative (bisacodyl) 5 mg tablet 5 mg PO QPM PRN (Reason: constipation) 0RF cholecalciferol (vitamin D3) 2,000 unit tablet,chewable 2,000 unit PO QDAY 0RF hydrocodone-acetaminophen 10-325 mg tablet 1 tab PO .6 times a day PRN (Reason: pain) 30 Days Qty: 180 0RF Rx Instructions: fill on or after 08/26/21 gabapentin 600 mg tablet 600 mg PO TID 30 Days Qty: 90 1RF amlodipine 5 mg tablet 5 mg PO DAILY Qty: 30 5RF allopurinol 300 mg tablet 300 mg PO DAILY Qty: 30 5RF atenolol 25 mg tablet 25 mg PO QDAY Qty: 30 5RF atorvastatin [Lipitor] 10 mg tablet 10 mg PO QDAY Qty: 30 5RF bupropion HCl [Wellbutrin SR] 150 mg tablet sustained-release 12 hr 150 mg PO QAM Qty: 30 5RF famotidine [Pepcid] 20 mg tablet 20 mg PO DAILY Qty: 30 5RF levothyroxine 100 mcg tablet 100 mcg PO QDAY Qty: 30 5RF Tradjenta 5 mg tablet 5 mg PO QDAY Qty: 30 5RF Farxiga 5 mg tablet 5 mg PO QAM Qty: 30 2RF sertraline 100 mg tablet 50 mg PO BID 0RF Held furosemide [Lasix] 20 mg tablet 20 mg PO BID PRN (Reason: edema) Qty: 60 5RF Hold Instructions: Resume on 12/28/21. lisinopril 40 mg tablet 40 mg PO DAILY Qty: 30 5RF Hold Instructions: Resume on 12/23/21. Discontinued doxycycline hyclate 100 mg capsule 100 mg PO BID Qty: 14 0RF Discharge Orders: Discharge Order (Routine); Ordered 12/21/21 Ordered By: Moira Lyon Other Ambulatory Orders: Basic Metabolic Panel (Routine) Timeframe: 3 Days Facility: [facility] - Location: Lab - Main Lab Ordered By: Moira Lyon Referrals: DatarAndrae MD [Physician] - 2 weeks Braeden Em FNP-C [Primary Care Provider] - Discharge Diet: Regular Discharge Activity: Increase activity as tolerated Patient Instructions: Opioid Safety Discharge Attestations Time Spent in Discharge Care*: less than 30 min Quality Metrics Clinical Quality Measures [ No reported AMI, CVA or VTE this stay] Coding Level of Care Code Acute Chg FW DC note Diagnoses Chest pain R07.9 Hyponatremia E87.1
--- NOTE | 2021-12-20 07:29 | ECG_ITS ---
[facility] [place] Date: 2021-12-20 Pat Name: Geeta Lagos Department: Room: 278 Gender: Female Community Development Officer: Shilpajuliana Carrn : 1935 Requested By: Moira Lyon Order Number: [id number] Magali MD: Armaan Ramirez M.D. Interpretive Statements NAME OF STUDY: LEXISCAN SESTAMIBI STRESS TEST INDICATION: Unstable angina, PROCEDURE: At the baseline, the EKG revealed sinus bradycardia with a poor R wave progression.. The baseline blood pressure was 118/54 mm Hg with a heart rate of 57 beats/min. Lexiscan was infused over a period of 20 seconds. A total of 0.4 milligrams of Lexiscan was infused. The stress phase was continued for a total of 5 minutes. Heart rate at the end of the stress phase was 72 with a blood pressure 132/56. The EKG at the peak infusion revealed no significant changes. Sestamibi was injected 20 seconds after the Lexiscan infusion. Blood pressure at the end of the recovery phase was 129/59 with a heart rate of 68 per minute. CONCLUSION: 1. No significant EKG changes with the LexiScan infusion 2. No LexiScan induced chest pain or cardiac arrhythmia 3. Normal blood pressure and heart rate response 4. Sestamibi/sestamibi perfusion scan pending; see separate report. Electronically Signed On 12-20-2021 22:50:59 CDT by Armaan Ramirez M.D. [email or web address]
[2021-12-20] MEDS: regadenoson 0.4 Mg/5 ml Syringe IVP (08:14)
[2021-12-20 08:18] LABS: Glucose Point of Care 174 mg/dL (70-110)
[2021-12-20 08:18] LABS: Glucose Point of Care 291 mg/dL (70-110)
[2021-12-20] MEDS: lisinopril 20 mg Tablet 40 MG PO (10:33)
[2021-12-20] MEDS: azithromycin 250 mg Tablet 500 MG PO (10:33)
[2021-12-20] MEDS: allopurinol 300 mg Tablet PO (10:34)
[2021-12-20] MEDS: famotidine 20 mg Tablet PO (10:35)
[2021-12-20] MEDS: aspirin 81 mg EC Tablet PO (10:35)
[2021-12-20] MEDS: amlodipine 5 mg Tablet PO (10:36)
[2021-12-20 11:57] LABS: Glucose Point of Care 273 mg/dL (70-110)
--- NOTE | 2021-12-20 13:25 | P.PN_ITS ---
Subjective Subjective: Leukocytosis have worsened no fever Creatinine improved I will start IV fluids, waiting for echo and stress results We will discharge her tomorrow Vitals/I&O/Wt Last Vital Signs Temp 97.2 F L 12/20/21 04:00 Pulse 71 12/20/21 12:18 Resp 18 12/20/21 12:18 BP 136/80 12/20/21 12:18 Pulse Ox 95 12/20/21 12:18 Weight last 48 hrs Weight 79.379 kg Physical Exam Narrative: Hemodynamically stable Nonfocal neuro exam No active chest pain Saturating well on room air Abdomen soft No signs of edema No sign of cellulitis Cooperative and pleasant Data : 12/20/21 05:11 12/20/21 05:11 A&P Assessment and plan (1) Chest pain: Status: Acute (2) Diabetes mellitus with hyperglycemia, without long-term current use of insulin: Status: Chronic Qualifiers: Diabetes mellitus type: type 2 Qualified Code(s): E11.65 - Type 2 diabetes mellitus with hyperglycemia (3) Osteoarthritis of right knee: Status: Acute (4) Elevated blood uric acid level: Status: Acute Plan Unstable angina Chest pain-free Awaiting cardiac stress test and echo report She was diagnosed with bronchitis outpatient Currently on azithromycin Afebrile Currently saturating well on room air Chest x-ray is clear Worsening leukocytosis , I am not sure about etiology Hemoglobin A1c at 9.3 SUE related to dehydration: Start IV fluids Cardiac consistent carb diet Attestations Medical Necessity Statement*: Discharge tomorrow Time Spent in Patient Care: 30 Coding Level of Care Code Acute Tour Guide for [facility] Diagnoses Chest pain R07.9 Diabetes mellitus with hyperglycemia, without long-term current use of insulin E11.65 Diabetes mellitus type: type 2 Osteoarthritis of right knee M17.11 Elevated blood uric acid level E79.0
--- NOTE | 2021-12-20 13:28 | CT_ITS ---
WS: [id number] CT CHEST TECHNIQUE: Noncontrast CT of the chest with coronal and sagittal reformatted images. CLINICAL INFORMATION: Leukocytosis, cough COMPARISON: None. DLP: 804.[address] scans at [facility] use at least one of these dose optimization techniques: automated e xposure control; mA and/or kV adjustment per patient size (includes targeted exams where dose is matc hed to clinical indication); or iterative reconstruction. FINDINGS:Mild chronic emphysematous changes. No focal pneumonia or pleural fluid. A few tiny noncalci fied pulmonary nodules measuring 2-3 mm in the RIGHT upper and lower lobes. A few subtle tree-in-bud opacities in the RIGHT upper lobe and RIGHT lower lobe laterally likely inflammatory. Aortic calcification. Normal caliber thoracic aorta. Coronary calcification. Normal caliber descendin g thoracic aorta. No mediastinal or hilar lymphadenopathy. No axillary lymphadenopathy. Adrenal gland s are normal. Partially visualized hepatomegaly. Small esophageal hiatal hernia. Mild thoracic curve. Mild thoracic kyphosis. Mild spondylitic changes thoracic spine. Partially visua lized RIGHT upper pole renal cyst better visualized on CT abdomen pelvis 2019 CT/CT chest wo con [id number] IMPRESSION: 1. Mild chronic emphysematous changes. 2. A few tree-in-bud opacities in the RIGHT upper lobe and RIGHT lower lobe li stephanie inflammatory. 3. No focal pneumonia or pleural fluid. 4. No mediastinal or hilar lymphadenopathy. 5. Vascular calcification including coronary. 6. Small esophageal hiatal hernia. 7. A few tiny pulmonary nodules in RIGHT upper and RIGHT lower lobe measuring 2 to 3 mm. 8. No other significant findings.
[2021-12-20] MEDS: HYDROcodone-acetaminophen 10-325 mg Tablet 1 TAB PO (13:45)
[2021-12-20] MEDS: sodium chloride 0.9% 1,000 ML 30 ML IV (13:49)
[2021-12-20 14:10] LABS: Basophils % 0.2 %; Eosinophils # 0.4 10^3/uL (0.0-0.8); Eosinophils % 2.3 %; Hematocrit 45.6 % (37.0-47.0); Hemoglobin 15.1 g/dL (11.5-15.3); Lymphocytes # 3.1 10^3/uL (0.8-4.8); Lymphocytes % 17.8 %; Mean Corpuscular HGB Conc 33.1 g/dL (30.0-36.0); Mean Corpuscular Hemoglobin 29.9 pg (28.0-34.0); Mean Corpuscular Volume 90.3 fl (81-99); Mean Platelet Volume 10.3 fL (7.4-10.4); Monocytes # 1.4 10^3/uL (0.2-0.9); Monocytes % 8.2 %; Neutrophils # 11.85 10^3/uL (1.8-7.7); Neutrophils % 69.1 %; Nucleated Red Blood Cells % 0 %; Platelet Count 343 10^3/cmm (130-400); Red Blood Count 5.05 10^6/uL (4.1-5.3); Red Cell Distribution Width 14.8 % (12.1-15.1); White Blood Count 17.1 10^3/uL (4.0-10.0)
[2021-12-20] MEDS: gabapentin 300 mg Capsule 600 MG PO ×2 (16:23→20:31)
[2021-12-20 16:58] LABS: Glucose Point of Care 218 mg/dL (70-110)
[2021-12-20] MEDS: insulin lispro 100 unit/1 mL SUBCUT (17:12)
--- NOTE | 2021-12-20 17:41 | PC.NURSE ---
Patient AAOx4, VSS, no new events, minimal c/o pain, resting in bed and repositioning self frequently. OOBTC and ambulating to restroom. No needs at this time. Room clean and clutter free with call light in reach.
[2021-12-20 21:31] LABS: Glucose Point of Care 199 mg/dL (70-110)
--- NOTE | 2021-12-20 22:05 | USCV_ITS ---
[place] Geeta Age: 86 Gender: F : 1935 Exam Date: 12/20/2021 09:28 Ordering Phys: Moira Lyon MD Technologist: ESTRELLITA Exam Location: [facility] [place] Indication: Unstable angina BP: 132 / 62 HR: 62 Rhythm: Sinus Technical Quality: Adequate MEASUREMENTS (Male / Female) Normal Values 2D ECHO LV Diastolic Diameter PLAX 4.9 cm 4.2 - 5.9 / 3.9 - 5.3 cm LV Systolic Diameter PLAX 3.0 cm IVS Diastolic Thickness 1.2 cm 0.6 - 1.0 / 0.6 - 0.9 cm IVS Systolic Thickness 1.8 cm LVPW Diastolic Thickness 1.3 cm 0.6 - 1.0 / 0.6 - 0.9 cm LVPW Systolic Thickness 1.7 cm LVOT Diameter 2.0 cm LV Ejection Fraction 2D Teich 70.0 % LV Ejection Fraction MOD 2C 67.9 % LV Ejection Fraction 2C AL 71.0 % LA Diameter 3.1 cm LA Width 2.9 cm LA Height 4.5 cm RA Width 2.8 cm RA Height 4.1 cm Aorta at Sinotubular Diameter 2.4 cm IVC Diameter 1.3 cm M-MODE Aortic Annulus Diameter 2.8 cm LA Ao Ratio MM 1.1 MV E Point Septal Separation 0.2 cm DOPPLER AV Peak Velocity 153.0 cm/s LVOT Peak Velocity 128.0 cm/s AV Area Cont Eq vti 3.0 cm squared AV Area Cont Eq pk 2.7 cm squared MV Peak Velocity 106.0 cm/s MV Area PHT 2.2 cm squared Mitral E to A Ratio 0.5 MV E' Velocity 30.0 cm/s Mitral E to MV E' Ratio 8.0 Mitral E to LV E' Lateral Ratio 8.6 Mitral E to LV E' Septal Ratio 7.6 TR Peak Velocity 158.4 cm/s TR Peak Gradient 10.0 mmHg TR Mean Velocity 92.9 cm/s TR Mean Gradient 4.5 mmHg TR Velocity Time Integral 34.8 cm TV Peak E Velocity 41.0 cm/s Right Atrial Pressure 3.0 mmHg Pulmonary Artery Systolic Pressu 13.0 mmHg PV Peak Velocity 120.0 cm/s RV Acceleration Time 0.1 s RV Ejection Time 0.3 s RV AcT/ET 0.2 FINDINGS Left Ventricle Normal left ventricular size, systolic function and wall thickness, with no regional wall motion abnormalities. Left ventricular ejection fraction is estimated at 70 %. Grade I diastolic dysfunction (abnormal relaxation filling pattern), normal to mildly elevated filling pressures. Right Ventricle Normal right ventricular size and systolic function. Right Atrium Normal right atrial size. Right atrial pressure estimated at 3 mmHg. Left Atrium Upper normal left atrial size. Mitral Valve Structurally normal mitral valve. Aortic Valve Structurally normal trileaflet aortic valve. No aortic valve stenosis. Trace aortic valve regurgitation. Tricuspid Valve Structurally normal tricuspid valve. Trace tricuspid valve regurgitation. Pulmonic Valve Structurally normal pulmonic valve. No pulmonary valve stenosis. Trace pulmonary valve regurgitation. Pericardium No pericardial effusion. Aorta Normal size aortic root and proximal ascending aorta. IVC Normal IVC dimension with >50% respiratory change of the inferior vena cava. CONCLUSIONS 1. Normal left ventricular size, systolic function and wall thickness, with no regional wall motion abnormalities. Left ventricular ejection fraction is estimated at 70 %. Grade I diastolic dysfunction (abnormal relaxation filling pattern), normal to mildly elevated filling pressures. 2. Trace aortic valve regurgitation. Stephania Antonio MD (Electronically Signed) Final Date: 20 December 2021 13:35 S
--- NOTE | 2021-12-20 22:05 | NMCV_ITS ---
NM kar perf SPECT r/s* [id number] Geeta Lagos Age: 86 Gender: F : 1935 Exam Date: 12/20/2021 22:05 Ordering Phys: Moira Lyon MD Technologist: TAMMI Chapin Exam Location: [facility] Indications: CHEST PAIN STRESS TEST [facility] IMAGE PROTOCOL Rest/Stress 1 Lexiscan Day Radiopharmaceutical Dose (mCi) Administration Site Administered by Rest: Tc-99m 11.0 IV TAMMI Chapin Sestamibi Stress:Tc-99m 32.8 IV Kera Reilly, INVESTMENT BANKING ASSOCIATE Sestamibi Rest: 20-Dec-2021 60 Discovery 630 Stress: 20-Dec-2021 30 Discovery 630 0.4mg Lexiscan. Supine position only as patient was unable to lay prone. SPECT RESULTS Technical Quality: Excellent Raw Data Analysis: Normal Image Corrections: No attenuation or motion correction applied Summed Stress Score: 0 Summed Rest Score: 0 Summed Difference Score: 0 PERFUSION FINDINGS Uniform myocardial tracer uptake. No significant perfusion abnormality FUNCTIONAL RESULTS (calculated via Gated SPECT) Stress Image LV EF (%): 78 Stress EDV (mL):51 TID: 0.88 Stress ESV (mL):11 FUNCTIONAL FINDINGS: Segmental wall motion analysis revealing no gross wall motion abnormalities IMPRESSIONS 1. Unremarkable Myocardial perfusion imaging 2. Normal LV ejection fraction 78%. 3. Segmental wall motion analysis revealing no gross wall motion abnormalities 4. Normal LV volume Low probability for coronary ischemia, based on the above findings. No similar previous studies are available for comparison Dr Armaan Ramirez MD [facility] (Electronically Signed) Final Date: 20 December 2021 22:20 S
[2021-12-21] VITALS (7 sets, daily range): BP systolic 91–111; BP diastolic 59–68; PULSE 67–73; RESP 16–19; TEMP 36.4–36.9; O2SAT 92–96
[2021-12-21 05:21] LABS: Basophils # 0.1 10^3/uL (0.0-0.1); Basophils % 0.3 %; Eosinophils # 0.7 10^3/uL (0.0-0.8); Eosinophils % 4.8 %; Hemoglobin 12.8 g/dL (11.5-15.3); Lymphocytes # 3.6 10^3/uL (0.8-4.8); Lymphocytes % 24.8 %; Mean Corpuscular HGB Conc 33.7 g/dL (30.0-36.0); Mean Corpuscular Hemoglobin 30.1 pg (28.0-34.0); Mean Corpuscular Volume 89.4 fl (81-99); Mean Platelet Volume 10.5 fL (7.4-10.4); Monocytes # 1.5 10^3/uL (0.2-0.9); Monocytes % 9.9 %; Neutrophils # 8.44 10^3/uL (1.8-7.7); Nucleated Red Blood Cells % 0 %; Platelet Count 288 10^3/cmm (130-400); Red Blood Count 4.25 10^6/uL (4.1-5.3); Red Cell Distribution Width 14.8 % (12.1-15.1); White Blood Count 14.6 10^3/uL (4.0-10.0)
[2021-12-21 05:36] LABS: Anion Gap 12.7 (5-19); Blood Urea Nitrogen 61 mg/dL (8-23); Calcium 9.2 mg/dL (8.5-10.5); Carbon Dioxide 22 mmol/L (22-29); Chloride 97 mmol/L (98-107); Glucose 210 mg/dL (65-115); Osmolality Calculated 287 mOsm/kg (285-295); Potassium 4.7 mmol/L (3.5-5.1); Sodium 127 mmol/L (136-145)
[2021-12-21] MEDS: buPROPion SR (12 HR) 150 mg Tablet PO (06:05)
--- NOTE | 2021-12-21 06:56 | PM.PN ---
Subjective Subjective: Afebrile Leukocytosis improved Sodium has dropped I will add salt tablets continue normal saline check serum, urine osmolality TSH Vitals/I&O/Wt Last Vital Signs Temp 98.4 F 12/21/21 04:00 Pulse 72 12/21/21 06:00 Resp 19 H 12/21/21 04:00 BP 106/62 12/21/21 04:00 Pulse Ox 95 12/21/21 04:00 12/20/21 12/20/21 12/21/21 14:59 22:59 06:59 Intake Total 100 / 100 780 / 880 480 / 1360 Balance 100 / 100 780 / 880 480 / 1360 Weight last 48 hrs Weight 79.379 kg Physical Exam Narrative: Patient is euvolemic Afebrile Saturating well on room air No audible stridor or wheezing Abdomen soft Nonfocal neuro exam Pleasant and cooperative Data : 12/21/21 05:12 12/21/21 05:12 A&P Assessment and plan (1) Chest pain: Status: Acute (2) Diabetes mellitus with hyperglycemia, without long-term current use of insulin: Status: Chronic Qualifiers: Diabetes mellitus type: type 2 Qualified Code(s): E11.65 - Type 2 diabetes mellitus with hyperglycemia (3) Osteoarthritis of right knee: Status: Acute (4) Hyponatremia: Status: Acute Plan Acute on chronic hyponatremia Previously her sodium has remained low around 127 Poor p.o. intake Looks euvolemic Continue normal saline Check TSH urine and serum osmolarity Add salt tablets Leukocytosis has improved Tree-in-bud appearance on CT scan She could be experiencing chronic bronchitis Will recommend outpatient pulmonary follow-up for pulmonary nodule Chest pain: Stress test negative echo is unremarkable She has to stay here 1 more day for monitoring of sodium Continue cardiac consistent carb diet Full code Attestations Medical Necessity Statement*: Medical management to be continued for hyponatremia Time Spent in Patient Care: 30 Coding Level of Care Code Acute Mica Washer Gluer for Suri Fwd Diagnoses Chest pain R07.9 Diabetes mellitus with hyperglycemia, without long-term current use of insulin E11.65 Diabetes mellitus type: type 2 Osteoarthritis of right knee M17.11 Hyponatremia E87.1
[2021-12-21 07:27] LABS: Thyroid Stimulating Hormone 1.41 uIU/mL (0.27-4.20); Uric Acid 3.5 mg/dL (2.4-5.7)
[2021-12-21] MEDS: sodium chloride 1 gm Tablet PO ×2 (07:38→08:13)
[2021-12-21 08:07] LABS: Glucose Point of Care 188 mg/dL (70-110)
[2021-12-21] MEDS: azithromycin 250 mg Tablet 500 MG PO (08:12)
[2021-12-21] MEDS: lisinopril 20 mg Tablet 40 MG PO (08:13)
[2021-12-21] MEDS: allopurinol 300 mg Tablet PO (08:13)
[2021-12-21] MEDS: aspirin 81 mg EC Tablet PO (08:13)
[2021-12-21] MEDS: famotidine 20 mg Tablet PO (08:13)
[2021-12-21] MEDS: gabapentin 300 mg Capsule 600 MG PO (08:13)
[2021-12-21] MEDS: amlodipine 5 mg Tablet PO (08:14)
[2021-12-21] MEDS: levothyroxine 100 mcg Tablet PO (08:14)
[2021-12-21] MEDS: insulin lispro 100 unit/1 mL SUBCUT ×2 (08:17→11:44)
[2021-12-21 21:39] LABS: Glucose Point of Care 181 mg/dL (70-110)
[2021-12-21 21:39] LABS: Glucose Point of Care 174 mg/dL (70-110)
[2021-12-22 15:12] LABS: Osmolality Urine 467 mOsm/kg (50-1200)
[2021-12-22 15:13] LABS: Osmolality Serum 308 mOsm/kg (278-305)
== END 2021-12-21 13:46 | disposition home or self-care (01) ==
LOC: ER 20:53 → MEDSURG 21:04
PROVIDERS: Family Medicine; Admitting Provider Internal Medicine; Emergency Provider Emergency Medicine; PCP Nurse Practitioner; Visit Provider Internal Medicine
DX: R07.89 Other chest pain (principal); E87.1 Hypo-osmolality and hyponatremia; E11.65 Type 2 diabetes mellitus with hyperglycemia; M17.11 Unilateral primary osteoarthritis, right knee; E79.0 Hyperuricemia without signs of inflammatory arthritis and tophaceous disease; E03.9 Hypothyroidism, unspecified; I10 Essential (primary) hypertension; E55.9 Vitamin D deficiency, unspecified; M79.7 Fibromyalgia
CPT/HCPCS: 36415; 36416; 71045; 71250; 78452; 80048; 80053; 82962; 83036; 83735; 83930; 83935; 84443; 84484; 84550; 85025; 85378; 93005; 93017; 93306; 96372; 99285; A9500; G0378; J1815; J2785; J7030; Q0144

== ENCOUNTER → 2022-01-05 11:36 | Outpatient (BNVA) | payer MEDICARE, SELFPAY | PROVIDERS: PCP Nurse Practitioner; Visit Provider Nurse Practitioner | DX: E11.65 Type 2 diabetes mellitus with hyperglycemia (principal); R91.8 Other nonspecific abnormal finding of lung field | CPT/HCPCS: 80053; 81000; 85025 ==

== ENCOUNTER → 2022-01-06 09:47 | Outpatient (BNVA) | payer MEDICARE, SELFPAY | PROVIDERS: PCP Nurse Practitioner; Visit Provider Internal Medicine Pulmonary Disease | DX: J21.9 Acute bronchiolitis, unspecified (principal); R06.00 Dyspnea, unspecified; T78.40XA Allergy, unspecified, initial encounter; Z09 Encounter for follow-up examination after completed treatment for conditions other than malignant neoplasm; Z87.891 Personal history of nicotine dependence; R91.8 Other nonspecific abnormal finding of lung field | CPT/HCPCS: 36415; 80048; 99204 ==

== ENCOUNTER 2022-02-16 08:51 | Outpatient (CLI) | payer MEDICARE, SELFPAY ==
--- NOTE | 2022-02-16 14:19 | PFTS_ITS ---
Date of Study:02/16/22 Date of Dictation: MECHANICS: Forced vital capacity (FVC) is reduced. Forced expiratory volume in one second (FEV1) is reduced. FEV1/FVC is normal. FLOW VOLUME LOOP: Narrow with mild scooping. LUNG VOLUMES: Total lung capacity (TLC) is normal. Residual volume (RV) is normal. DIFFUSING CAPACITY FOR CARBON MONOXIDE: Normal. INTERPRETATION: The pulmonary function tests are consistent with nonspecific ventilatory limitations. The postbronchodilator spirometry is consistent with moderate restriction but the lung volumes are normal. The patient likely has a combination of obstructive and restrictive ventilatory defects. There is no significant postbronchodilator response. Lung volumes are normal. Gas exchange (DLCO) is normal. MTDD
== END 2022-02-16 08:52 | disposition home or self-care (01) ==
LOC: RT 08:52
PROVIDERS: PCP Nurse Practitioner; Visit Provider Internal Medicine Pulmonary Disease
DX: R91.8 Other nonspecific abnormal finding of lung field (principal); R06.00 Dyspnea, unspecified
CPT/HCPCS: 94060; 94726; 94729; J7611

== ENCOUNTER → 2022-02-27 13:53 | Outpatient (BNVA) | payer MEDICARE, SELFPAY | PROVIDERS: PCP Nurse Practitioner; Visit Provider Internal Medicine Pulmonary Disease | DX: R06.00 Dyspnea, unspecified (principal); J21.9 Acute bronchiolitis, unspecified; T78.40XA Allergy, unspecified, initial encounter; Z87.891 Personal history of nicotine dependence; R91.8 Other nonspecific abnormal finding of lung field | CPT/HCPCS: 36415; 82784; 82785; 86003; 99214 ==

== ENCOUNTER → 2022-03-13 15:40 | Outpatient (BNVA) | payer MEDICARE, SELFPAY | PROVIDERS: PCP Nurse Practitioner; Visit Provider Nurse Practitioner Family | DX: R30.0 Dysuria (principal); N39.0 Urinary tract infection, site not specified | CPT/HCPCS: 81000 ==

== ENCOUNTER → 2022-04-12 14:26 | Outpatient (BNVA) | payer MEDICARE, SELFPAY | PROVIDERS: PCP Nurse Practitioner; Visit Provider Nurse Practitioner | DX: E11.65 Type 2 diabetes mellitus with hyperglycemia (principal); K21.9 Gastro-esophageal reflux disease without esophagitis | CPT/HCPCS: 80053; 81000; 83036; 84443; 85025 ==

== ENCOUNTER 2022-04-13 15:30 | Outpatient (CLI) | payer MEDICARE, SELFPAY ==
--- NOTE | 2022-04-13 15:45 | CT_ITS ---
WS: [id number] CT CHEST WITHOUT INTRAVENOUS CONTRAST HISTORY: R91.8 - Other nonspecific abnormal finding of lung field TECHNIQUE: Contiguous 5 mm axial imaging performed on the thorax. Coronal and sagittal reformats are submitted. All CT scans at [facility] use at least one of these dose optimization techniques: automated exposure control; mA and/or kV adjustment per patient size (includes targeted exams where dose is matched to clinical indication); or iterative reconstruction. CONTRAST: None DLP: 688.19 mGy.cm COMPARISON: 12/20/2021 Lungs and central airway: Multiple, subcentimeter nodules with tree-in-bud airspace disease in the RI GHT upper and RIGHT lower lobes. Not changed since 12/20/2021. The nodules are subcentimeter measuring 2 to 3 mm. The tree-in-bud airspace disease has not progressed. Chronic emphysema. Pleura: Normal. No pleural effusion. Heart and pericardium: Mildly enlarged heart. Mediastinum and torres: No obvious change in the mediastinum. This study was performed without IV contr ast. Mild displacement of the esophagus to the LEFT may be due to the goiter. Vessels: Atherosclerosis aorta with mild ectasia. Mildly dilated pulmonary artery. Moderate coronary artery calcifications. Chest wall and lower neck: Substernal thyroid is enlarged and is similar to prior study. Upper abdomen: Small hiatal hernia. Cystic mass in the RIGHT upper abdomen incompletely visualized an d appears to arise from the RIGHT kidney. Cystic mass measures 5.3 x 5.2 cm. No adrenal abnormality. Osseous structures: Mild increase in thoracic kyphosis. CT/CT chest wo con [id number] IMPRESSION: 1. No improvement or progression of the tree-in-bud airspace disease and the s ubcentimeter nodules in the RIGHT upper and RIGHT lower lobes. This may be lunchroom aide monique and related to aspiration pneumonia or infection. 2. Cardiomegaly. 3. Assessment of the mediastinum and hilar regions limited without IV contrast but the thyroid does appear substernal and enlarged. 4. Incompletely visualized RIGHT renal cyst. 5. Chronic emphysema.
== END 2022-04-13 15:31 | disposition home or self-care (01) ==
PROVIDERS: PCP Nurse Practitioner; Visit Provider Nurse Practitioner
DX: R91.8 Other nonspecific abnormal finding of lung field (principal); I51.7 Cardiomegaly; N28.1 Cyst of kidney, acquired; J43.9 Emphysema, unspecified
CPT/HCPCS: 71250

== ENCOUNTER → 2022-05-01 13:36 | Outpatient (BNVA) | payer MEDICARE, SELFPAY | PROVIDERS: PCP Nurse Practitioner; Visit Provider Internal Medicine Pulmonary Disease | DX: J45.909 Unspecified asthma, uncomplicated (principal); J21.9 Acute bronchiolitis, unspecified; J82.83 Eosinophilic asthma; R06.09 Other forms of dyspnea; Z87.891 Personal history of nicotine dependence; R91.8 Other nonspecific abnormal finding of lung field | CPT/HCPCS: 99214 ==

== ENCOUNTER → 2022-05-02 13:11 | Outpatient (BNVA) | payer MEDICARE, SELFPAY | PROVIDERS: PCP Nurse Practitioner; Visit Provider Internal Medicine Pulmonary Disease | DX: J21.9 Acute bronchiolitis, unspecified (principal); R06.00 Dyspnea, unspecified; T78.40XA Allergy, unspecified, initial encounter; J45.909 Unspecified asthma, uncomplicated | CPT/HCPCS: 87015; 87070; 87116; 87205; 87206; 87801 ==

== ENCOUNTER → 2022-06-27 16:08 | Outpatient (BNVA) | payer MEDICARE, SELFPAY | PROVIDERS: PCP Nurse Practitioner; Visit Provider Nurse Practitioner Family | DX: M79.604 Pain in right leg (principal); M79.605 Pain in left leg; R29.6 Repeated falls; G62.9 Polyneuropathy, unspecified; R53.1 Weakness | CPT/HCPCS: 81000 ==

== ENCOUNTER 2022-07-10 12:35 | Outpatient (CLI) | payer MEDICARE, SELFPAY ==
--- NOTE | 2022-07-10 13:00 | CT_ITS ---
WS: [id number] CT HEAD TECHNIQUE: Noncontrast CT of the head obtained from the skullbase to the vertex. CLINICAL INFORMATION: R25.1 - Tremor, unspecified COMPARISON: None. DLP: 1058.[address] scans at [facility] use at least one of these dose optimization techniques: automated e xposure control; mA and/or kV adjustment per patient size (includes targeted exams where dose is matc hed to clinical indication); or iterative reconstruction. FINDINGS: No evidence of intracranial hemorrhage or mass effect. Ventricular system and basal cisterns are yi nt. Moderate small vessel changes with moderate parenchymal volume loss. Intracranial vascular calcif ication. No extra-axial fluid collections. No evidence of mass or mass effect. Intracranial vascular calcification. Paranasal sinuses and mastoid air cells are well aerated. Mild mucosal thickening RIGHT mastoid tip. Normal posterior nasopharynx .Normal visualized soft tissues. CT/CT head wo con* [id number] IMPRESSION: 1. No evidence of intracranial hemorrhage or mass effect. 2. Moderate small vessel changes. Moderate parenchymal volume loss. 3. No acute intracranial findings.
== END 2022-07-10 12:36 | disposition home or self-care (01) ==
PROVIDERS: PCP Nurse Practitioner; Visit Provider Nurse Practitioner
DX: R25.1 Tremor, unspecified (principal)
CPT/HCPCS: 70450

== ENCOUNTER → 2022-07-17 09:48 | Outpatient (BNVA) | payer MEDICARE, SELFPAY | PROVIDERS: PCP Nurse Practitioner; Referring Provider Nurse Practitioner Family; Visit Provider Podiatrist Foot & Ankle Surgery | DX: E11.65 Type 2 diabetes mellitus with hyperglycemia (principal); B35.1 Tinea unguium; M21.611 Bunion of right foot; M21.612 Bunion of left foot; M20.41 Other hammer toe(s) (acquired), right foot; M20.42 Other hammer toe(s) (acquired), left foot; G62.9 Polyneuropathy, unspecified | CPT/HCPCS: 11056; 11721; 99204 ==

== ENCOUNTER → 2022-07-19 12:06 | Outpatient (BNVA) | payer MEDICARE, SELFPAY | PROVIDERS: PCP Nurse Practitioner; Visit Provider Nurse Practitioner | DX: E03.8 Other specified hypothyroidism (principal); E11.65 Type 2 diabetes mellitus with hyperglycemia; B37.31 Acute candidiasis of vulva and vagina; F41.9 Anxiety disorder, unspecified; I10 Essential (primary) hypertension; E79.0 Hyperuricemia without signs of inflammatory arthritis and tophaceous disease; I73.9 Peripheral vascular disease, unspecified; K21.9 Gastro-esophageal reflux disease without esophagitis; F32.9 Major depressive disorder, single episode, unspecified | CPT/HCPCS: 80053; 80061; 81000; 82043; 83036; 84443 ==

== ENCOUNTER → 2022-08-08 11:08 | Outpatient (BNVA) | payer MEDICARE, SELFPAY | PROVIDERS: PCP Nurse Practitioner; Visit Provider Nurse Practitioner | DX: E11.65 Type 2 diabetes mellitus with hyperglycemia (principal); M25.561 Pain in right knee; L30.9 Dermatitis, unspecified | CPT/HCPCS: 80048 ==

== ENCOUNTER 2022-08-14 13:43 | Outpatient (CLI) | payer MEDICARE, SELFPAY ==
--- NOTE | 2022-08-14 14:30 | CT_ITS ---
WS: [id number] CT ABDOMEN AND PELVIS NONCONTRAST HISTORY: R15.9 - Full incontinence of feces TECHNIQUE: Imaging performed through the abdomen and pelvis. Coronal and sagittal reformats are submi tted. All CT scans at [facility] use at least one of these dose optimization techniques: auto mated exposure control; mA and/or kV adjustment per patient size (includes targeted exams where dose is matched to clinical indication); or iterative reconstruction. DLP: 706.52 mGy.cm COMPARISON: 06/13/2019 Lower thorax: Mild cardiomegaly. No pneumonia. Small hiatal hernia. Liver: Normal size liver. No mass or bile duct dilatation. Gallbladder: Normal gallbladder. Pancreas: Normal size and attenuation. Normal pancreatic duct. No pancreatitis or mass. Spleen: Normal. Adrenal glands: Normal. No mass. Right kidney: Mild atrophy. Large renal cyst extending anteriorly measuring 7.0 x 7.5 cm. Similar to the prior study. Smaller cysts are difficult to identified without contrast. No obstruction. Left kidney: Mild atrophy. No obstruction. Previously described cortical cysts are as not well visual ized without IV contrast. Aorta: Atherosclerosis aorta. No aneurysm. No free fluid, intraperitoneal air or significant lymphadenopathy. GI tract: Oral contrast partially distended the stomach. There is mild thickening at the GE junction which may be due to normal GE junction. Cannot exclude underlying neoplasm. No small bowel obstructio n. Tortuous colon with constipation. Diverticular disease in the distal colon. No evidence for acute diverticulitis. The pelvis is being obscured by artifact from the patient's hip prostheses. Abdominal wall: Negative. No hernia. Pelvis: Significant artifact through the pelvis from the patient's bilateral hip prostheses. Osseous structures: Bilateral hip prostheses. Severe degenerative spondylitic changes in the lumbar s pine. CT/CT abdomen pelvis wo con [id number] IMPRESSION: 1. Marked constipation with colon tortuosity and diverticular disease. 2. Large RIGHT renal cyst. 3. Atherosclerosis aorta. 4. Soft tissue thickening at the GE junction may be due to the hiatal hernia a nd underdistention. Cannot exclude early neoplasm.
== END 2022-08-14 13:44 | disposition home or self-care (01) ==
PROVIDERS: PCP Nurse Practitioner; Referring Provider Orthopaedic Surgery; Visit Provider Nurse Practitioner
DX: R15.9 Full incontinence of feces (principal); K59.00 Constipation, unspecified; K57.90 Diverticulosis of intestine, part unspecified, without perforation or abscess without bleeding; N28.1 Cyst of kidney, acquired; I70.0 Atherosclerosis of aorta
CPT/HCPCS: 74176

== ENCOUNTER → 2022-08-16 14:41 | Outpatient (BNVA) | payer MEDICARE, SELFPAY | PROVIDERS: PCP Nurse Practitioner; Referring Provider Nurse Practitioner; Visit Provider Orthopaedic Surgery | DX: M17.11 Unilateral primary osteoarthritis, right knee (principal) | CPT/HCPCS: 73560; 73565; 99213 ==

== ENCOUNTER → 2022-09-05 12:52 | Outpatient (BNVA) | payer MEDICARE, SELFPAY | PROVIDERS: PCP Nurse Practitioner; Visit Provider Orthopaedic Surgery | DX: M17.11 Unilateral primary osteoarthritis, right knee (principal) | CPT/HCPCS: 99213 ==

== ENCOUNTER → 2022-09-06 14:24 | Outpatient (BNVA) | payer MEDICARE, SELFPAY | PROVIDERS: PCP Nurse Practitioner; Visit Provider Surgery | DX: K59.01 Slow transit constipation (principal); K21.9 Gastro-esophageal reflux disease without esophagitis | CPT/HCPCS: 99203 ==

== ENCOUNTER 2022-09-07 13:57 | Outpatient (CLI) | payer MEDICARE, SELFPAY ==
--- NOTE | 2022-09-07 14:30 | CT_ITS ---
WS: [id number] CT RIGHT KNEE, NONCONTRAST TECHNIQUE: Noncontrast CT of the RIGHT knee to include the RIGHT hip and ankle. CLINICAL INFORMATION: pre op planning COMPARISON: None. DLP: 872.[address] scans at [facility] use at least one of these dose optimization techniques: automated e xposure control; mA and/or kV adjustment per patient size (includes targeted exams where dose is matc hed to clinical indication); or iterative reconstruction. FINDINGS: Prior postoperative changes bilateral THAs. LEFT TKA seen on the entry level sales consultant imaging. Moderate to advanced tricompartmental arthritis RIGHT knee with hypertrophic changes along the joint line. Moderate suprap atellar effusion. Hypertrophic patella. Vascular calcification. Degenerative arthritis sacroiliac eric nts. CT/CT knee RT wo con* [id number] IMPRESSION: Images obtained for preoperative purposes.
== END 2022-09-07 13:58 | disposition home or self-care (01) ==
PROVIDERS: PCP Nurse Practitioner; Visit Provider Orthopaedic Surgery
DX: M17.11 Unilateral primary osteoarthritis, right knee (principal); Z01.818 Encounter for other preprocedural examination
CPT/HCPCS: 73700

== ENCOUNTER → 2022-09-14 13:32 | Outpatient (BNVA) | payer MEDICARE, SELFPAY | PROVIDERS: PCP Nurse Practitioner; Visit Provider Nurse Practitioner | DX: R30.0 Dysuria (principal); L30.9 Dermatitis, unspecified | CPT/HCPCS: 81000; 87077; 87086; 87184 ==

== ENCOUNTER 2022-09-19 10:29 | Outpatient (CLI) | payer MEDICARE, SELFPAY | END 2022-09-19 10:30 | disposition home or self-care (01) | LOC: RT 09-29 10:32 | PROVIDERS: PCP Nurse Practitioner; Visit Provider Orthopaedic Surgery | DX: Z13.6 Encounter for screening for cardiovascular disorders (principal); R00.1 Bradycardia, unspecified | CPT/HCPCS: 93005 ==

== ENCOUNTER 2022-09-19 13:07 | Emergency (ER) | payer MEDICARE, SELFPAY ==
[2022-09-19 13:07] VITALS: BP 142/81; PULSE 70; RESP 16; TEMP 36.6; O2SAT 92
--- NOTE | 2022-09-19 14:27 | CTR_ITS ---
PROCEDURE INFORMATION: Exam: CT Head Without Contrast Exam date and time: 09/19/2022 3:18 PM Age: 87 years old Clinical indication: Injury or trauma; Fall; Blunt trauma (contusions or hematomas); Consciousness not specified TECHNIQUE: Imaging protocol: Computed tomography of the head without contrast. Radiation optimization: All CT scans at this facility use at least one of these dose optimization techniques: automated exposure control; mA and/or kV adjustment per patient size (includes targeted exams where dose is matched to clinical indication); or iterative reconstruction. REPORTING DATA: Count of CT and Cardiac NM exams in prior 12 months: This patient has received 7 known CTs and 0 known cardiac nuclear medicine studies in the 12 months prior to the current study. COMPARISON: CT head wo con* [id number] 07/10/2022 1:07 PM RADIATION DOSE METRICS: Total DLP (mGy-cm): 161.5 FINDINGS: Brain: There are moderate periventricular and subcortical lucencies consistent with chronic microvascular ischemic changes.The henriquez-white differentiation is maintained. No hemorrhage. No edema. 3 mm lipoma of the anterior interhemispheric fissure. Cerebral ventricles: No ventriculomegaly. Paranasal sinuses: Visualized sinuses are unremarkable. No fluid levels. Mastoid air cells: Visualized mastoid air cells are well aerated. Bones/joints: Unremarkable. No acute fracture. Soft tissues: Unremarkable. CT/CT head wo con* [id number] IMPRESSION: No acute intracranial abnormality. Chronic microvascular ischemic changes.
--- NOTE | 2022-09-19 14:27 | CTR_ITS ---
PROCEDURE INFORMATION: Exam: CT Cervical Spine Without Contrast Exam date and time: 09/19/2022 3:18 PM Age: 87 years old Clinical indication: Injury or trauma; Fall; Blunt trauma; Additional info: Trauma/fall TECHNIQUE: Imaging protocol: Computed tomography of the cervical spine without contrast. Radiation optimization: All CT scans at this facility use at least one of these dose optimization techniques: automated exposure control; mA and/or kV adjustment per patient size (includes targeted exams where dose is matched to clinical indication); or iterative reconstruction. REPORTING DATA: Count of CT and Cardiac NM exams in prior 12 months: This patient has received 7 known CTs and 0 known cardiac nuclear medicine studies in the 12 months prior to the current study. COMPARISON: CT head wo con* [id number] 07/10/2022 1:07 PM RADIATION DOSE METRICS: Total DLP (mGy-cm): 161.5 FINDINGS: Bones/joints: Grade 1 anterolisthesis of C3 over C4, C4 over C5. Multilevel degenerative disc disease. No acute fracture. Lungs: Lung apices are normal. Lymph nodes: Prominent cervical lymph nodes. Soft tissues: Unremarkable. CT/CT cervical spin wo con* [id number] IMPRESSION: No acute abnormality. Prominent cervical lymph nodes. Clinical correlation.
--- NOTE | 2022-09-19 15:52 | XRR_ITS ---
PROCEDURE INFORMATION: Exam: XR Sacrum and Coccyx, 2 or More Views Exam date and time: 09/19/2022 3:58 PM Age: 87 years old Clinical indication: Injury or trauma; Fall; Blunt trauma (contusions or hematomas) TECHNIQUE: Imaging protocol: XR of the sacrum and coccyx, 2 or more views. COMPARISON: CT abdomen pelvis con [id number] 08/14/2022 2:49 PM FINDINGS: Bones/joints: Bilateral total hip arthroplasty. No acute fracture. Soft tissues: Normal. XR/XR coccyx 2V [id number] IMPRESSION: No acute abnormality.
--- NOTE | 2022-09-19 15:52 | XR_ITS ---
WS: [id number] EXAMINATION: XR pelvis 1-2V* [id number] REASON FOR EXAM: fall COMPARISON: None available. ORDER DATE: 09/19/2022 4:18 PM FINDINGS: There are bilateral total hip replacements. Exam is somewhat underpenetrated with a large abdominal f old superimposing the pelvic cavity.. XR/XR pelvis 1-2V* [id number] IMPRESSION: No evidence of abnormality in the partially imaged total hip replac ements bilaterally.
[2022-09-19 16:00] VITALS: PULSE 68; RESP 18; O2SAT 95
--- NOTE | 2022-09-19 16:25 | ED_ITS ---
HPI - Fall General: Chief Complaint: Fall Stated Complaint: fall/hit back of head Time Seen by Provider: 09/19/22 15:22 Source: patient and family (Daughter) Limitations: no limitations History of Present Illness: This 87-year-old female who lives by herself was brought in by daughter for evaluation following a fall. She has peripheral neuropathy and has numbness in her feet. As a result, her legs tend to give out and she falls. She is supposed to be mobilizing with a walker or a cane but patient sometimes forgets to do so. Today, she was mobilizing without support when she fell and hit her head on a skillet. No loss of consciousness was reported though patient complains of pain around the left baptist. She complains of pain in the buttock where she fell. Patient notes that she has been having recurrent falls over the last several weeks. She has a bad right hip and is scheduled for hip replacement on Sunday next Sunday. She appears clinically stable. Review of Systems General: Reports: 10 or more systems reviewed and unremarkable except in HPI and below ENMT: Reports: other (Pain in the left baptist.) Musc: Reports: other (Pain in the buttock region.) PFSH ED PFSH: Medical History Acid reflux Adult onset hypothyroidism Anxiety and depression Bilateral primary osteoarthritis of knee Bulging lumbar disc Cervical radiculopathy due to degenerative joint disease of spine DDD (degenerative disc disease), lumbar Degenerative disc disease Diabetes mellitus with hyperglycemia, without long-term current use of insulin Elevated blood uric acid level Encounter for long-term use of opiate analgesic Essential (primary) hypertension Fibromyalgia, primary Lumbar stenosis Osteoarthritis of right knee Polyneuropathy, unspecified PVD (peripheral vascular disease) Vitamin D insufficiency Surgical History H/O cataract removal with insertion of prosthetic lens H/O dilation and curettage H/O: hysterectomy History of knee replacement Left knee /2019 Status post total hip replacement, bilateral Family History Mother Stroke Hypertension Social History Smoking and tobacco status: former smoker Quit status (tobacco): has quit using tobacco Year quit tobacco: 1971 Former quit date comment: 2ppd x 20 years Second hand smoke exposure: No Alcohol intake: never Desire information about alcohol rehabilitation?: No Counseling given: No Desire information about substance/drug rehabilitation?: No Counseling given: No Adopted: No Caregiver/support person: No Lives independently: Yes Household members: none Housing: House Marital status: / service: No Current occupational status: unemployed and retired Pets and animals: Yes Pets & animals: cat(s) and dog(s) Current gender identity: Female Physical Exam Const: COMMON NORMALS: no acute distress, patient oriented x3, no limitations and alert HENMT: COMMON NORMALS: normocephalic HEAD & SCALP: normocephalic OTHER: Healing bruise over the left baptist (from a previous fall). No hematoma. Eye: COMMON NORMALS: EOMs intact bilaterally Neck/C-Spine: COMMON NORMALS: full ROM and supple Chest: COMMONS NORMALS: normal inspection of the chest Resp: COMMON NORMALS: normal respiratory effort, No retractions, No use of accessory muscles and clear to auscultation bilaterally AUSCULTATION: clear to auscultation bilaterally Cardio: COMMON NORMALS: regular rate, regular rhythm and No murmurs present (Cardio) RATE: regular rate RHYTHM: regular rhythm GI: COMMON NORMALS: Normal to inspection, nondistended, normoactive bowel sounds present and non-tender : COMMON NORMALS: Yes no CVA tenderness BLADDER/KIDNEY EXAM: Yes no CVA tenderness Back/Pelvis: COMMON NORMALS: no CVA tenderness and no thoracic nor lumbar tenderness OTHER: Tenderness over the coccyx region. No swelling or deformity. Extremity: GENERAL: Yes normal exam except as noted Neuro: COMMON NORMALS: patient oriented x3 and no focal motor deficits SENSORIUM/ORIENTATION: Yes alert Psych: COMMON NORMALS: mental status grossly normal and cooperative Course Vital Signs: Vital signs: Vital Signs Temperature 97.9 F 09/19/22 13:07 Pulse Rate 78 09/19/22 17:00 Respiratory Rate 16 09/19/22 18:00 Blood Pressure 142/81 09/19/22 13:07 Pulse Oximetry 93 09/19/22 18:00 Oxygen Delivery Me thod 09/19/22 18:00 MDM - Fall Medical Decision Making Medical decision making: This 87-year-old female presents to the ER for evaluation following a fall today. She has had multiple falls in the past primarily because she fails to mobilize with the walker or cane she has at home. She is scheduled to have surgery next week. CT brain, CT cervical spine and pelvic x-ray are negative for intracranial bleed or fracture/dislocation. Patient will be treated symptomatically. She was advised to avoid mobilizing without support. Return instructions provided. Lab Data 09/19/22 16:14 09/19/22 16:14 Radiology Impressions Cervical Spine CT 09/19/22 14:27 IMPRESSION: No acute abnormality. Prominent cervical lymph nodes. Clinical correlation. Head CT 09/19/22 14:27 IMPRESSION: No acute intracranial abnormality. Chronic microvascular ischemic changes. Coccyx X-Ray 09/19/22 15:52 IMPRESSION: No acute abnormality. Pelvis X-Ray 09/19/22 15:52 IMPRESSION: No evidence of abnormality in the partially imaged total hip replacements bilaterally. Laboratory Results WBC 12.4 10^3/uL (4.0-10.0) H 09/19/22 16:14 RBC 4.55 10^6/uL (4.1-5.3) 09/19/22 16:14 Hgb 13.4 g/dL (11.5-15.3) 09/19/22 16:14 Hct 42.5 % (37.0-47.0) 09/19/22 16:14 MCV 93.4 fl (81-99) 09/19/22 16:14 MCH 29.5 pg (28.0-34.0) 09/19/22 16:14 MCHC 31.5 g/dL (30.0-36.0) 09/19/22 16:14 RDW 15.2 % (12.1-15.1) H 09/19/22 16:14 Plt Count 317 10^3/cmm (130-400) 09/19/22 16:14 MPV 9.9 fL (7.4-10.4) 09/19/22 16:14 Total Counted 100 (0-100) 09/19/22 16:14 Atypical Lymphs % Not Reportable 09/19/22 16:14 Segmented Neutrophils 75 % 09/19/22 16:14 Abs Segm Neuts (Man) 9.3 10/cmm (1.6-7.1) H 09/19/22 16:14 Band Neutrophils Not Reportable 09/19/22 16:14 Lymphocytes (Manual) 17 % 09/19/22 16:14 Monocytes (Manual) 6.0 % 09/19/22 16:14 Absolute Monocytes 0.7 10^3/cmm (0.1-0.6) H 09/19/22 16:14 Eosinophils (Manual) 2 % 09/19/22 16:14 Absolute Eosinophils 0.2 10^3/cmm (0.0-0.7) 09/19/22 16:14 Basophils (Manual) 0.0 % 09/19/22 16:14 Absolute Basophils 0.0 10^3/cmm (0.0-0.2) 09/19/22 16:14 Platelet Estimate Normal (Normal) 09/19/22 16:14 Sodium 140 mmol/L (136-145) 09/19/22 16:14 Potassium 4.1 mmol/L (3.5-5.1) 09/19/22 16:14 Chloride 101 mmol/L (98-107) 09/19/22 16:14 Carbon Dioxide 29 mmol/L (22-29) 09/19/22 16:14 Anion Gap 14.1 (5-19) 09/19/22 16:14 BUN 13 mg/dL (8-23) 09/19/22 16:14 Creatinine 0.7 mg/dL (0.5-0.9) 09/19/22 16:14 GFR Calculation Not Reportable 09/19/22 16:14 Glucose 122 mg/dL (65-115) H 09/19/22 16:14 Calculated Osmolality 291 mOsm/kg (285-295) 09/19/22 16:14 Calcium 9.7 mg/dL (8.5-10.5) 09/19/22 16:14 Total Bilirubin 0.2 mg/dL (0.15-1.2) 09/19/22 16:14 AST 18 U/L (0-32) 09/19/22 16:14 ALT 10 U/L (0-33) 09/19/22 16:14 Alkaline Phosphatase 96 U/L (35-105) 09/19/22 16:14 Total Protein 7.3 g/dL (6.6-8.7) 09/19/22 16:14 Albumin 4.1 g/dL (3.5-5.2) 09/19/22 16:14 Globulin 3.2 g/dL (1.3-4.6) 09/19/22 16:14 Discharge Plan Discharge Patient Disposition: Home Clinical Impression: Closed head injury, Back contusion Condition: Stable Prescriptions: No Action coenzyme Q10 [Co Q-10] 10 mg capsule 30 mg PO QDAY Laxative (bisacodyl) 5 mg tablet 5 mg PO QPM PRN (Reason: constipation) cholecalciferol (vitamin D3) 2,000 unit tablet,chewable 2,000 unit PO QDAY hydrocodone-acetaminophen 10-325 mg tablet 1 tab PO .6 times a day PRN (Reason: pain) 30 Days Qty: 180 0RF Rx Instructions: fill on or after 08/26/21 gabapentin 600 mg tablet 600 mg PO TID 30 Days Qty: 90 1RF furosemide [Lasix] 20 mg tablet 20 mg PO BID PRN (Reason: edema) Qty: 60 5RF Hold Instructions: Resume on 12/28/21. fluticasone propion-salmeterol [Advair Diskus] 250-50 mcg/dose blister with device 1 inh inhalation BID Qty: 60 3RF miscellaneous medical supply Misc See Rx Instructions miscellaneous .COMPLEX Qty: 1 0RF Rx Instructions: Acapella device-use as directed fluconazole [Diflucan] 150 mg tablet 150 mg PO DAILY Qty: 1 0RF allopurinol 300 mg tablet 300 mg PO DAILY Qty: 30 5RF amlodipine 5 mg tablet 5 mg PO DAILY Qty: 30 5RF atenolol 25 mg tablet 25 mg PO QDAY Qty: 30 5RF atorvastatin [Lipitor] 10 mg tablet 10 mg PO QDAY Qty: 30 5RF bupropion HCl [Wellbutrin SR] 150 mg tablet sustained-release 12 hr 150 mg PO QAM Qty: 30 5RF clopidogrel [Plavix] 75 mg tablet 75 mg PO .at bedtime Qty: 30 5RF famotidine [Pepcid] 20 mg tablet 20 mg PO BID Qty: 60 5RF levothyroxine 100 mcg tablet 100 mcg PO QDAY Qty: 30 5RF sertraline [Zoloft] 50 mg tablet 50 mg PO .2 times day Qty: 60 5RF glipizide 2.5 mg tablet extended release 24hr 2.5 mg PO DAILY Qty: 30 2RF Tradjenta 5 mg tablet 5 mg PO QDAY Qty: 30 2RF nystatin 100,000 unit/gram cream 1 applic topical BID Qty: 30 0RF nitrofurantoin monohyd/m-cryst [Macrobid] 100 mg capsule 100 mg PO Q12H 7 Days Qty: 14 0RF Rx Instructions: must administer with a meal/food albuterol sulfate 90 mcg/actuation HFA aerosol inhaler 2 inh inhalation Q8H PRN (Reason: shortness of breath or wheezing) Qty: 8.5 0RF Discharge Orders: Discharge ED (Routine); Ordered 09/19/22 Ordered By: Ian Valdivia Referrals: Braeden Em, [facility] [Primary Care Provider] - Discharge Diet: Usual diet Discharge Activity: Use walker/crutches as instructed Patient Instructions: Opioid Safety, Pain Management Activity Restrictions/Additional Instructions: Be sure to mobilize with a walker always. Do not walk without assistance. Take the hydrocodone you have as needed for pain. Follow-up with your primary care physician as needed. Keep to your appointment for the scheduled surgery. Return with new or worsening symptoms. Coding Level of Care Code ED Button Machine Operator for Suri Ragsdale
[2022-09-19 16:49] LABS: Hematocrit 42.5 % (37.0-47.0); Hemoglobin 13.4 g/dL (11.5-15.3); Mean Corpuscular HGB Conc 31.5 g/dL (30.0-36.0); Mean Corpuscular Hemoglobin 29.5 pg (28.0-34.0); Mean Corpuscular Volume 93.4 fl (81-99); Mean Platelet Volume 9.9 fL (7.4-10.4); Platelet Count 317 10^3/cmm (130-400); Red Blood Count 4.55 10^6/uL (4.1-5.3); Red Cell Distribution Width 15.2 % (12.1-15.1); White Blood Count 12.4 10^3/uL (4.0-10.0)
[2022-09-19 17:00] VITALS: PULSE 78; RESP 16; O2SAT 93
[2022-09-19 17:10] LABS: Alanine Aminotransferase 10 U/L (0-33); Albumin Level 4.1 g/dL (3.5-5.2); Alkaline Phosphatase 96 U/L (35-105); Anion Gap 14.1 (5-19); Aspartate Amino Transferase 18 U/L (0-32); Blood Urea Nitrogen 13 mg/dL (8-23); Calcium 9.7 mg/dL (8.5-10.5); Carbon Dioxide 29 mmol/L (22-29); Chloride 101 mmol/L (98-107); Globulin 3.2 g/dL (1.3-4.6); Glucose 122 mg/dL (65-115); Osmolality Calculated 291 mOsm/kg (285-295); Potassium 4.1 mmol/L (3.5-5.1); Sodium 140 mmol/L (136-145); Total Bilirubin 0.2 mg/dL (0.15-1.2); Total Protein 7.3 g/dL (6.6-8.7)
[2022-09-19 17:39] LABS: Absolute Segmented Neutrophil 9.3 10/cmm (1.6-7.1); Segmented Neutrophils 75 %; Total Cells Counted 100 (0-100)
[2022-09-19 17:40] LABS: Absolute Eosinophils 0.2 10^3/cmm (0.0-0.7); Eosinophils 2 %; Lymphocytes 17 %; Monocytes Absolute 0.7 10^3/cmm (0.1-0.6); Platelet Estimate Normal (Normal)
[2022-09-19 18:00] VITALS: RESP 16; O2SAT 93
[2022-09-19 19:09] VITALS: BP 181/102; PULSE 77; RESP 18
== END 2022-09-19 19:15 | disposition home or self-care (01) ==
PROVIDERS: Emergency Provider Family Medicine; PCP Nurse Practitioner
DX: S09.90XA Unspecified injury of head, initial encounter (principal); S30.0XXA Contusion of lower back and pelvis, initial encounter; E11.51 Type 2 diabetes mellitus with diabetic peripheral angiopathy without gangrene; I10 Essential (primary) hypertension; E03.9 Hypothyroidism, unspecified; Z79.84 Long term (current) use of oral hypoglycemic drugs; Z87.891 Personal history of nicotine dependence; W18.39XA Other fall on same level, initial encounter; W18.09XA Striking against other object with subsequent fall, initial encounter
CPT/HCPCS: 70450; 72125; 72170; 72220; 80053; 85007; 85027; 99284

== ENCOUNTER → 2022-10-10 14:36 | Outpatient (BNVA) | payer MEDICARE, SELFPAY | PROVIDERS: PCP Nurse Practitioner; Visit Provider Internal Medicine Pulmonary Disease | DX: Z01.811 Encounter for preprocedural respiratory examination (principal); J21.9 Acute bronchiolitis, unspecified; J45.909 Unspecified asthma, uncomplicated; R29.6 Repeated falls; G47.34 Idiopathic sleep related nonobstructive alveolar hypoventilation; J82.83 Eosinophilic asthma; Z91.09 Other allergy status, other than to drugs and biological substances; G47.19 Other hypersomnia; R91.8 Other nonspecific abnormal finding of lung field; Z87.891 Personal history of nicotine dependence | CPT/HCPCS: 71046; 99214 ==

== ENCOUNTER → 2023-02-05 15:13 | Outpatient (BNVA) | payer MEDICARE, SELFPAY | PROVIDERS: PCP Nurse Practitioner; Visit Provider Nurse Practitioner | DX: E03.8 Other specified hypothyroidism (principal); E11.65 Type 2 diabetes mellitus with hyperglycemia | CPT/HCPCS: 80053; 80061; 82607; 83036; 84443 ==

== ENCOUNTER → 2023-03-28 10:13 | Outpatient (BNVA) | payer MEDICARE, SELFPAY | PROVIDERS: PCP Nurse Practitioner; Visit Provider Nurse Practitioner | DX: M17.11 Unilateral primary osteoarthritis, right knee (principal); M25.50 Pain in unspecified joint; G62.9 Polyneuropathy, unspecified; M19.071 Primary osteoarthritis, right ankle and foot; S82.51XA Displaced fracture of medial malleolus of right tibia, initial encounter for closed fracture; X58.XXXA Exposure to other specified factors, initial encounter | CPT/HCPCS: 73562; 73610; 73620; 73630 ==

== ENCOUNTER → 2023-04-06 10:55 | Outpatient (BNVA) | payer MEDICARE, SELFPAY | PROVIDERS: PCP Nurse Practitioner; Visit Provider Podiatrist Foot & Ankle Surgery | DX: I73.9 Peripheral vascular disease, unspecified (principal); E11.65 Type 2 diabetes mellitus with hyperglycemia; G62.9 Polyneuropathy, unspecified; E11.42 Type 2 diabetes mellitus with diabetic polyneuropathy | CPT/HCPCS: 99213 ==

== ENCOUNTER → 2023-06-05 15:24 | Outpatient (BNVA) | payer MEDICARE, SELFPAY | PROVIDERS: PCP Nurse Practitioner; Visit Provider Nurse Practitioner | DX: E11.65 Type 2 diabetes mellitus with hyperglycemia (principal) | CPT/HCPCS: 80053; 83036 ==

== ENCOUNTER → 2023-08-16 11:12 | Outpatient (BNVA) | payer MEDICARE, SELFPAY | PROVIDERS: PCP Nurse Practitioner; Visit Provider Podiatrist Foot & Ankle Surgery | DX: L60.3 Nail dystrophy (principal); I73.9 Peripheral vascular disease, unspecified; E11.65 Type 2 diabetes mellitus with hyperglycemia; G62.9 Polyneuropathy, unspecified; E11.42 Type 2 diabetes mellitus with diabetic polyneuropathy | CPT/HCPCS: 11721 ==

== ENCOUNTER 2023-11-28 09:35 | Outpatient (CLI) | payer MEDICARE, SELFPAY ==
--- NOTE | 2023-11-28 10:45 | CT_ITS ---
WS: [id number] CT ABDOMEN AND PELVIS WITH CONTRAST HISTORY: K59.01 - Slow transit constipation TECHNIQUE: Imaging performed of the abdomen and pelvis with IV contrast. Single phase imaging of the abdomen. Coronal and sagittal reformats are submitted. All CT scans at [facility] use at [address] [facility] one of these dose optimization techniques: automated exposure control; mA and/or kV adjustment per patient size (includes targeted exams where dose is matched to clinical indication); or iterative re construction. IV CONTRAST: Omnipaque 350; 100 mL IV. Oral contrast: Yes. DLP: 521.76 mGy.cm COMPARISON: 08/14/2022 Lower thorax: Posterior LEFT diaphragmatic hernia contains fat only. Also noted on the prior studies. Mild cardiomegaly. There is mild thickening at the GE junction extending towards the stomach fundus. Very similar to 08/14/2022. This may be due to under distention. Neoplasm may appear similar. Liver/biliary system: Normal size with no intrahepatic dilatation. Gallbladder: Normal. No gallstones or wall thickening. No pericholecystic fluid. Pancreas: Normal size pancreas and pancreatic duct. No adjacent inflammation. Spleen: Normal size spleen. No mass or infarct. Adrenal glands: Normal. Right kidney: Normal size kidney. There are multiple cortical cysts and complex cysts and too small t o characterize masses throughout the kidney. The largest mass is a cyst measuring 5.6 x 5.8 cm. There are additional too small to characterize hypodensities. Early renal cell neoplasm is not excluded. T here is no obstruction of the kidney. Left kidney: Normal size kidney with cortical cysts and too small to characterize hypodensities. Aorta: Mild atherosclerosis with no aneurysm. Lymphadenopathy: None. Free fluid: None. GI tract: No small bowel obstruction. Diffuse constipation is rather marked. No obstructing process. Scattered diverticula without acute diverticulitis. Abdominal wall: Fat containing umbilical hernia. Pelvis: No free fluid or adenopathy within the pelvis. No presacral abnormality. Bones: Marked increase in lumbar lordosis and scoliosis. Anterolisthesis of L3, L4 and L5. Advanced d egenerative disc disease. Component of central and foraminal stenosis throughout the lumbar spine. Bi lateral hip prosthesis causing artifact through the pelvis. CT/CT abdomen pelvis w con* [id number] IMPRESSION: 1. No presacral mass or adenopathy. There is some artifact obscuring detail th rough the pelvis from the patient's prior hip arthroplasties. 2. No adenopathy. 3. Diffuse constipation. 4. There is mild soft tissue thickening at the GE junction. This may be due to under distention. Neoplasm may appear similar. The appearance is similar to e study of 08/14/2022. Upper endoscopy would be the study of choice to exclude a bnormality at the GE junction. 5. Multiple too small to characterize cortical hypodensities involving each ki dney and cysts. Small, subcentimeter renal cell neoplasms not excluded.
[2023-11-28] MEDS: iohexol 350 mg/mL 500 mL Btl (per mL) IV (11:08)
[2023-11-28] MEDS: iohexol 350 mg/mL 500 mL Btl (per mL) PO (11:08)
== END 2023-11-28 09:36 | disposition home or self-care (01) ==
LOC: RAD 09:35
PROVIDERS: PCP Nurse Practitioner; Visit Provider Nurse Practitioner
DX: K59.01 Slow transit constipation (principal); K42.9 Umbilical hernia without obstruction or gangrene
CPT/HCPCS: 74177; Q9967

== ENCOUNTER → 2023-12-13 11:09 | Outpatient (BNVA) | payer MEDICARE, SELFPAY | PROVIDERS: PCP Nurse Practitioner; Visit Provider Podiatrist Foot & Ankle Surgery | DX: L60.3 Nail dystrophy (principal); I73.9 Peripheral vascular disease, unspecified; E11.65 Type 2 diabetes mellitus with hyperglycemia; G62.9 Polyneuropathy, unspecified | CPT/HCPCS: 11721 ==

== ENCOUNTER 2024-02-07 23:55 | Emergency (ER) | payer MEDICARE, SELFPAY ==
[2024-02-08] VITALS (39 sets, daily range): BP systolic 146–206; BP diastolic 69–102; PULSE 77–82; RESP 12–18; TEMP 36.3; O2SAT 87–96
--- NOTE | 2024-02-08 00:18 | ECG_ITS ---
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 Measurements Intervals [place] Rate: 78 P: 63 NC: 173 QRS: -49 QRSD: 98 T: 46 QT: 352 QTc: 403 Interpretive Statements SINUS RHYTHM LEFT ANTERIOR FASCICULAR BLOCK [QRS AXIS <= -45, QR IN I, RS IN II] MINIMAL VOLTAGE CRITERIA FOR LVH, CONSIDER NORMAL VARIANT [MEETS CRITERIA IN ONE OF: R(aVL), S(V1), R(V5), R(V5/V6)+S(V1)] SEPTAL MYOCARDIAL INFARCTION , PROBABLY OLD [40+ ms Q WAVE IN V1/V2] Compared to ECG 09/19/2022 11:07:35 Left anterior fascicular block now present Myocardial infarct finding now present Sinus bradycardia no longer present Left-axis deviation no longer present Electronically Signed On 02-08-2024 11:54:16 CDT by Kevin Sy M.D. [id number]
--- NOTE | 2024-02-08 00:53 | CTR_ITS ---
PROCEDURE INFORMATION: Exam: CT Left Lower Extremity Exam date and time: 02/08/2024 1:24 AM Age: 88 years old Clinical indication: Pain and injury or trauma; Fall; Difficulty in walking and edema and swelling, leg or foot and swelling or effusion of joint; Yes, it is localized; Blunt trauma; Hip and thigh or upper leg and knee; Hip and knee; Prior surgery; Surgery date: 6+ months; Surgery type: Jone hip replacements and left knee replacement; Additional info: Fall with large hematoma on blood thinners TECHNIQUE: Imaging protocol: CT of the left lower extremity with intravenous contrast was performed. Radiation optimization: All CT scans at this facility use at least one of these dose optimization techniques: automated exposure control; mA and/or kV adjustment per patient size (includes targeted exams where dose is matched to clinical indication); or iterative reconstruction. COMPARISON: CT abdomen pelvis w con* [id number] 11/28/2023 10:47 AM RADIATION DOSE METRICS: Total DLP (mGy-cm): 817.11 FINDINGS: Bones/joints: There is a left total knee arthroplasty in place. No acute fracture or dislocation. left total hip arthroplasty in place. Soft tissues: 5.5 x 4 x 5.5 cm subcutaneous hematoma along the midportion of the left thigh. CT/CT femur LT w con [id number] IMPRESSION: 1. No acute fracture or dislocation. 2. 5.5 x 4 x 5.5 cm subcutaneous hematoma along the midportion of the left thigh.
[2024-02-08 00:55] LABS: Basophils # 0.1 10^3/uL (0.0-0.1); Basophils % 0.4 %; Eosinophils # 0.4 10^3/uL (0.0-0.8); Eosinophils % 2.7 %; Hematocrit 41.9 % (36-47); Lymphocytes # 3.3 10^3/uL (0.8-4.8); Lymphocytes % 21.2 %; Mean Corpuscular HGB Conc 33.2 g/dL (30-55); Mean Corpuscular Hemoglobin 30.5 pg (27-33); Mean Corpuscular Volume 92.1 fl (85-98); Mean Platelet Volume 9.3 fL (7.4-10.4); Monocytes # 1.3 10^3/uL (0.2-0.9); Monocytes % 8.2 %; Neutrophils # 10.51 10^3/uL (1.8-7.7); Nucleated Red Blood Cells % 0 %; Platelet Count 346 10^3/cmm (157-399); Red Blood Count 4.55 10^6/uL (3.85-5.65); Red Cell Distribution Width 13.2 % (12.1-15.1); White Blood Count 15.68 10^3/uL (3.29-11.43)
--- NOTE | 2024-02-08 01:01 | ED_ITS ---
HPI - Fall 2 General: Chief Complaint: Fall Stated Complaint: fell, possible blacked out Time Seen by Provider: 02/08/24 00:22 History of Present Illness: Patient reports to the ER after falling while standing at the kitchen sink earlier this afternoon. Patient states she had a dog bowl to her left upper thigh. She has a very large bruise and hematoma. Patient denies hitting her head or losing consciousness. Patient is on blood thinners. Patient is having some left chest wall pain that is reproducible with palpation in this large hematoma hurts her leg. Review of Systems 2 General: Reports: 10 or more systems reviewed and unremarkable except in HPI and below PFSH ED 2 PFSH: Medical History PVD (peripheral vascular disease) Diabetes mellitus with hyperglycemia, without long-term current use of insulin Osteoarthritis of right knee Elevated blood uric acid level Acid reflux Bulging lumbar disc Lumbar stenosis Degenerative disc disease Adult onset hypothyroidism Vitamin D insufficiency DDD (degenerative disc disease), lumbar Anxiety and depression Fibromyalgia, primary Polyneuropathy, unspecified Bilateral primary osteoarthritis of knee Cervical radiculopathy due to degenerative joint disease of spine Encounter for long-term use of opiate analgesic Essential (primary) hypertension Surgical History History of knee replacement Left knee /2019 Status post total hip replacement, bilateral H/O: hysterectomy H/O dilation and curettage H/O cataract removal with insertion of prosthetic lens Family History Mother Stroke Hypertension Social History Smoking and tobacco/nicotine status: former use of tobacco/nicotine Quit status (tobacco/nicotine): has quit using Year quit tobacco: 1971 Former quit date comment: 2ppd x 20 years Second hand smoke exposure: No Alcohol intake: never Substance/Drug Use: never Adopted: No Caregiver/support person: No Lives independently: Yes Household members: none Housing: House Marital status: / service: No Current occupational status: unemployed and retired Pets and animals: Yes Pets & animals: cat(s) and dog(s) Do you think of yourself as: Straight/Heterosexual Current gender identity: Female Physical Exam 2 Const: COMMON NORMALS: no acute distress, average body habitus, patient oriented x3, no limitations, healthy appearing, alert and well nourished HENMT: COMMON NORMALS: normocephalic, atraumatic, hearing grossly normal bilaterally, external ears normal, Normal external nose present and moist oral mucous membranes HEAD & SCALP: normocephalic and atraumatic NOSE: Normal external nose present EXTERNAL EAR: Yes external ears normal Neck/C-Spine: COMMON NORMALS: no JVD Chest: COMMONS NORMALS: normal inspection of the chest; negative for normal palpation of entire chest wall (Very mild tenderness with palpation over left lateral chest wall) Resp: COMMON NORMALS: normal respiratory effort, No retractions, No use of accessory muscles and clear to auscultation bilaterally AUSCULTATION: clear to auscultation bilaterally Cardio: COMMON NORMALS: no JVD, regular rate, regular rhythm, S1 normal heart sound present, S2 normal heart sound present, No gallops present (Cardio), No clicks present (Cardio), No murmurs present (Cardio) and No rub (Cardio) R ATE: regular rate RHYTHM: regular rhythm HEART SOUNDS: S1 normal heart sound present and S2 normal heart sound present GI: COMMON NORMALS: Normal to inspection, nondistended, normoactive bowel sounds present, Soft to palpation, non-tender, No hepatosplenomegaly present and no masses PALPATION: Yes Soft to palpation and Yes No hepatosplenomegaly present Extremity: NARRATIVE EXTREMITY EXAM: Very large hematoma on left lateral thigh very tender to palpate. Neuro: COMMON NORMALS: patient oriented x3 SENSORIUM/ORIENTATION: Yes alert Course 2 Vital Signs: Vital signs: Vital Signs Temperature 97.3 F L 02/08/24 00:04 Pulse Rate 77 02/08/24 02:00 Respiratory Rate 16 02/08/24 02:21 Blood Pressure 166/76 02/08/24 03:50 Pulse Oximetry 91 02/08/24 03:50 Oxygen Delivery Me thod Room Air 02/08/24 02:00 MDM - Fall Medical Decision Making Lab work was obtained and femur CT was obtained. This showed a 5.5 x 4 x 5.5 cm subcu hematoma in the midportion of the left thigh. These results was discussed with the patient. Pain medicine was given pain was controlled. Patient be discharged here and referred to Ortho for follow-up. Differential Diagnosis Unlikely syncope, dislocation of shoulder region, fracture of wrist, compression fracture, concussion with loss of consciousness or concussion without loss of consciousness Medical Records I reviewed the patient's medical records. Lab Data I reviewed the patient's lab results. 02/08/24 00:23 02/08/24 00:[address] 02/08/24 00:53 IMPRESSION: 1. No acute fracture or dislocation. 2. 5.5 x 4 x 5.5 cm subcutaneous hematoma along the midportion of the left thigh. Laboratory Results WBC 15.68 10^3/uL (3.29-11.43) H 02/08/24 00:23 RBC 4.55 10^6/uL (3.85-5.65) 02/08/24 00:23 Hgb 13.90 g/dL (11.27-16.99) 02/08/24 00:23 Hct 41.9 % (36-47) 02/08/24 00:23 MCV 92.1 fl (85-98) 02/08/24 00:23 MCH 30.5 pg (27-33) 02/08/24 00:23 MCHC 33.2 g/dL (30-55) 02/08/24 00:23 RDW 13.2 % (12.1-15.1) 02/08/24 00:23 Plt Count 346 10^3/cmm (157-399) 02/08/24 00:23 MPV 9.3 fL (7.4-10.4) 02/08/24 00:23 Neut % (Auto) 67.0 % 02/08/24 00:23 Lymph % (Auto) 21.2 % 02/08/24 00:23 Hardee % (Auto) 8.2 % 02/08/24 00:23 Eos % (Auto) 2.7 % 02/08/24 00:23 Baso % (Auto) 0.4 % 02/08/24 00:23 Neut # (Auto) 10.51 10^3/uL (1.8-7.7) H 02/08/24 00:23 Lymph # (Auto) 3.3 10^3/uL (0.8-4.8) 02/08/24 00:23 Hardee # (Auto) 1.3 10^3/uL (0.2-0.9) H 02/08/24 00:23 Eos # (Auto) 0.4 10^3/uL (0.0-0.8) 02/08/24 00:23 Baso # (Auto) 0.1 10^3/uL (0.0-0.1) 02/08/24 00:23 Nucleated RBC % (auto) 0 % 02/08/24 00:23 Nucleated RBCs # 0.0 /100WBC 02/08/24 00:23 PT 12.70 SECONDS (12.1-14.9) 02/08/24 00:23 INR 0.93 (0.8-1.2) 02/08/24 00:23 Sodium 133 mmol/L (136-145) L 02/08/24 00:23 Potassium 4.2 mmol/L (3.5-5.1) 02/08/24 00:23 Chloride 94 mmol/L (98-107) L 02/08/24 00:23 Carbon Dioxide 25 mmol/L (22-29) 02/08/24 00:23 Anion Gap 18.2 (5-19) 02/08/24 00:23 BUN 18 mg/dL (8-23) 02/08/24 00:23 Creatinine 1.0 mg/dL (0.5-0.9) H 02/08/24 00:23 GFR Calculation Not Reportable 02/08/24 00:23 Glucose 175 mg/dL (65-115) H 02/08/24 00:23 Calculated Osmolality 282 mOsm/kg (285-295) L 02/08/24 00:23 Calcium 10.2 mg/dL (8.5-10.5) 02/08/24 00:23 Total Bilirubin 0.3 mg/dL (0.15-1.2) 02/08/24 00:23 AST 20 U/L (0-32) 02/08/24 00:23 ALT 16 U/L (0-33) 02/08/24 00:23 Alkaline Phosphatase 88 U/L (35-105) 02/08/24 00:23 Total Protein 7.7 g/dL (6.6-8.7) 02/08/24 00:23 Albumin 4.5 g/dL (3.5-5.2) 02/08/24 00:23 Globulin 3.2 g/dL (1.3-4.6) 02/08/24 00:23 All radiology interpretation(s) finalized by discharge Discharge Plan Discharge Patient Disposition: Home Clinical Impression: Hematoma and contusion, Chronic anticoagulation Fall Qualifiers: Encounter type: initial encounter Qualified Code(s): W19.XXXA - Unspecified fall, initial encounter Condition: Stable Prescriptions: New oxycodone-acetaminophen [Percocet] 5-325 mg tablet 1 tab PO Q6H PRN (Reason: pain) Qty: 14 0RF No Action coenzyme Q10 [Co Q-10] 10 mg capsule 30 mg PO QDAY Laxative (bisacodyl) 5 mg tablet 5 mg PO QPM PRN (Reason: constipation) cholecalciferol (vitamin D3) 2,000 unit tablet,chewable 2,000 unit PO QDAY hydrocodone-acetaminophen 10-325 mg tablet 1 tab PO .6 times a day PRN (Reason: pain) 30 Days Qty: 180 0RF Rx Instructions: fill on or after 08/26/21 gabapentin 600 mg tablet 600 mg PO TID 30 Days Qty: 90 1RF fluticasone propion-salmeterol [Advair Diskus] 250-50 mcg/dose blister with device 1 inh inhalation BID Qty: 60 3RF mupirocin 2 % ointment 1 applic topical BID Qty: 22 0RF Rx Instructions: apply left leg estradiol [Estrace] 0.01 % (0.1 mg/gram) cream See Rx Instructions .ROUTE .COMPLEX Qty: 42.5 0RF Rx Instructions: erika size apply topical labia at bedtime; glycerin (adult) [Fleet Glycerin (Adult)] Suppository 1 supp ME DAILY PRN (Reason: constipation) Qty: 25 0RF miscellaneous medical supply Misc See Rx Instructions miscellaneous .COMPLEX Qty: 1 0RF Rx Instructions: Acapella device-use as directed (DME) diabetic shoes with 3 inserts See Rx Instructions .Route .MEDSUPPLY Qty: 1 0RF Rx Instructions: As directed to the Shoe Guillermo atenolol 25 mg tablet 25 mg PO QDAY Qty: 30 5RF atorvastatin [Lipitor] 10 mg tablet 10 mg PO QDAY Qty: 30 5RF clopidogrel [Plavix] 75 mg tablet 75 mg PO .at bedtime Qty: 30 5RF duloxetine [Cymbalta] 60 mg capsule,delayed release(DR/EC) 60 mg PO BID Qty: 60 5RF famotidine [Pepcid] 20 mg tablet 20 mg PO BID Qty: 60 5RF furosemide [Lasix] 20 mg tablet 20 mg PO BID PRN (Reason: edema) Qty: 60 5RF Hold Instructions: Resume on 12/28/21. levothyroxine 100 mcg tablet 100 mcg PO QDAY Qty: 30 5RF Tradjenta 5 mg tablet 5 mg PO QDAY Qty: 30 5RF valsartan [Diovan] 160 mg tablet 160 mg PO DAILY Qty: 30 2RF Rx Instructions: stop Norvasc albuterol sulfate 90 mcg/actuation HFA aerosol inhaler 2 inh inhalation Q8H PRN (Reason: shortness of breath or wheezing) Qty: 8.5 0RF Discharge Orders: Discharge ED (Routine); Ordered 02/08/24 Ordered By: Avery Botello Referrals: Braeden Em, [employer] [Primary Care Provider] - 1 week Patient Instructions: Hematoma (ED), Opioid Safety, Pain Management Activity Restrictions/Additional Instructions: Your CT scan showed you have a very large hematoma on your left thigh. This is a large collection of blood. They usually do not drain these and let these reabsorb on their own however this 1 is large. You have been referred to a orthopedic surgeon to get their opinion. We all have also changed your pain medicine to something stronger. Please pick it up at the pharmacy and take it as directed as needed. Coding Level of Care Code ED Technical Architect for Suri Ragsdale
[2024-02-08 01:10] LABS: Alanine Aminotransferase 16 U/L (0-33); Albumin Level 4.5 g/dL (3.5-5.2); Alkaline Phosphatase 88 U/L (35-105); Anion Gap 18.2 (5-19); Aspartate Amino Transferase 20 U/L (0-32); Blood Urea Nitrogen 18 mg/dL (8-23); Calcium 10.2 mg/dL (8.5-10.5); Carbon Dioxide 25 mmol/L (22-29); Chloride 94 mmol/L (98-107); Creatinine Clr Calc Pharmacy 33.9154; Globulin 3.2 g/dL (1.3-4.6); Glucose 175 mg/dL (65-115); Osmolality Calculated 282 mOsm/kg (285-295); Potassium 4.2 mmol/L (3.5-5.1); Sodium 133 mmol/L (136-145); Total Bilirubin 0.3 mg/dL (0.15-1.2); Total Protein 7.7 g/dL (6.6-8.7)
[2024-02-08 01:12] LABS: INR 0.93 (0.8-1.2)
[2024-02-08] MEDS: ondansetron 2 mg/ML SDV 2 mL 4 MG IVP (01:21)
[2024-02-08] MEDS: morphine 4 mg/mL SDV 1 mL IVP ×2 (01:21→02:21)
--- NOTE | 2024-02-08 09:11 | DCPLANNER ---
messaged ortho for er f/u
== END 2024-02-08 04:30 | disposition home or self-care (01) ==
PROVIDERS: Emergency Provider Emergency Medicine; PCP Nurse Practitioner
DX: S70.12XA Contusion of left thigh, initial encounter (principal); Z79.01 Long term (current) use of anticoagulants; Z79.02 Long term (current) use of antithrombotics/antiplatelets; Z87.891 Personal history of nicotine dependence; E11.9 Type 2 diabetes mellitus without complications; I10 Essential (primary) hypertension; W18.39XA Other fall on same level, initial encounter; Y92.000 Kitchen of unspecified non-institutional (private) residence as the place of occurrence of the external cause
CPT/HCPCS: 73701; 80053; 85025; 85610; 93005; 96374; 96375; 96376; 99285; J2270; J2405; Q9967

== ENCOUNTER 2024-02-21 06:00 | Outpatient (CLI) | payer MEDICARE, SELFPAY | END 2024-02-21 06:01 | disposition home or self-care (01) | LOC: RAD 03-06 08:52 | PROVIDERS: PCP Nurse Practitioner; Visit Provider General Practice | DX: Z09 Encounter for follow-up examination after completed treatment for conditions other than malignant neoplasm (principal); T14.8XXA Other injury of unspecified body region, initial encounter; X58.XXXA Exposure to other specified factors, initial encounter; M51.36 Other intervertebral disc degeneration, lumbar region | CPT/HCPCS: 99204; 99214 ==

== ENCOUNTER → 2024-03-31 14:32 | Outpatient (BNVA) | payer MEDICARE, SELFPAY | PROVIDERS: PCP Nurse Practitioner; Visit Provider Nurse Practitioner | DX: E11.9 Type 2 diabetes mellitus without complications (principal); E03.8 Other specified hypothyroidism | CPT/HCPCS: 80053; 80061; 83036; 84443 ==

== ENCOUNTER → 2024-06-16 15:00 | Outpatient (BNVA) | payer MEDICARE, SELFPAY | PROVIDERS: PCP Nurse Practitioner; Visit Provider Nurse Practitioner | DX: I10 Essential (primary) hypertension (principal); E11.65 Type 2 diabetes mellitus with hyperglycemia; I73.9 Peripheral vascular disease, unspecified; G62.9 Polyneuropathy, unspecified; N95.2 Postmenopausal atrophic vaginitis; K21.9 Gastro-esophageal reflux disease without esophagitis; E03.8 Other specified hypothyroidism; G47.00 Insomnia, unspecified; E11.9 Type 2 diabetes mellitus without complications; J45.909 Unspecified asthma, uncomplicated | CPT/HCPCS: 80053; 83036 ==

== ENCOUNTER → 2024-06-17 12:52 | Outpatient (BNVA) | payer MEDICARE, SELFPAY | PROVIDERS: PCP Nurse Practitioner; Visit Provider Nurse Practitioner | DX: E11.9 Type 2 diabetes mellitus without complications (principal) | CPT/HCPCS: 81000; 87086 ==